=== PATIENT | female | born 2000 | race Caucasian/White ===

== ENCOUNTER 2025-01-04 12:56 | Inpatient (IN) | payer SELFPAY ==
[2025-01-04 13:29] VITALS: BP 142/86; PULSE 117; RESP 21; TEMP 36.9; O2SAT 98; BMI 23.3
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
[2025-01-04 14:22] LABS: HCG Qualitative Urine. Negative (Negative)
[2025-01-04 14:46] LABS: Amphetamines Screen Urine Negative (Negative); Barbiturates Screen Urine Negative (Negative); Benzodiazepines Screen Urine Negative (Negative); Cocaine Screen Urine Negative (Negative); Opiate Screen Urine Negative (Negative); PCP Screen Urine Negative (Negative); THC Screen Urine Negative (Negative)
--- NOTE | 2025-01-04 15:14 | PC.NURSE ---
CHIP MUCKER AND SECURITY TO ROOM TO READ 96 HOUR RIGHTS. PT CALM AND COOPERATIVE. PT STATES SHE HAS NO QUESTIONS. MOTHER AT BEDSIDE.
[2025-01-04 15:22] LABS: Basophils % 0.3 %; Eosinophils % 0.1 %; Hematocrit 44.6 % (36-47); Lymphocytes # 1.2 10^3/uL (0.8-4.8); Lymphocytes % 11.3 %; Mean Corpuscular HGB Conc 34.1 g/dL (30-55); Mean Corpuscular Hemoglobin 29.1 pg (27-33); Mean Corpuscular Volume 85.3 fl (85-98); Mean Platelet Volume 11.2 fL (7.4-10.4); Monocytes # 0.6 10^3/uL (0.2-0.9); Monocytes % 5.3 %; Neutrophils % 82.4 %; Nucleated Red Blood Cells % 0 %; Platelet Count 276 10^3/cmm (157-399); Red Blood Count 5.23 10^6/uL (3.85-5.65); Red Cell Distribution Width 12.2 % (12.1-15.1); White Blood Count 10.68 10^3/uL (3.29-11.43)
[2025-01-04 15:38] LABS: Alanine Aminotransferase 6 U/L (0-33); Albumin Level 4.9 g/dL (3.5-5.2); Alkaline Phosphatase 58 U/L (35-105); Anion Gap 22.4 (5-19); Aspartate Amino Transferase 9 U/L (0-32); Blood Urea Nitrogen 6 mg/dL (6-20); Calcium 9.5 mg/dL (8.5-10.5); Carbon Dioxide 18 mmol/L (22-29); Chloride 98 mmol/L (98-107); Creatinine Clr Calc Pharmacy 102.9052; Globulin 2.9 g/dL (1.3-4.6); Glomerular Filtration Rate 88.9 mL/min (90-130); Glucose 148 mg/dL (65-115); Osmolality Calculated 280 mOsm/kg (285-295); Potassium 3.4 mmol/L (3.5-5.1); Salicylate 0.5 mg/dL (3-10); Sodium 135 mmol/L (136-145); Total Bilirubin 1.6 mg/dL (0.15-1.2); Total Protein 7.8 g/dL (6.6-8.7)
[2025-01-04 15:40] LABS: Acetaminophen < 5.0 ug/mL (10-30); Alcohol Level < 10 mg/dL (0-10)
[2025-01-04 15:53] LABS: Thyroid Stimulating Hormone 1.07 uIU/mL (0.27-4.20)
[2025-01-04] MEDS: OLANZapine 5 mg ODT 2.5 MG PO (16:00)
--- NOTE | 2025-01-04 16:00 | PC.NURSE ---
PATIENT EXPRESSED TO ME THAT SHE FELT SHE HAS SCHIZOPHRENIA AND BPD BUT IS UNSURE. I EDUCATED PATIENT ON RESOURCES FOR [facility] AND INFORMED PROVIDER RUBIO WARD OF PATIENTS THOUGHTS.
[2025-01-04 17:22] VITALS: BP 105/68; PULSE 130; RESP 18; TEMP 37.1; O2SAT 96
[2025-01-04 17:30] VITALS: BP 105/68; PULSE 130; O2SAT 96
--- NOTE | 2025-01-04 17:40 | PC.NURSE ---
patient obtaining 2 silver little hoop earrings. pt stating she can't take them out. pt's mother obtained necklace. foam charger and Employment Case Manager notified/okayed.
[2025-01-04] MEDS: nicotine 2 mg Gum BUCCAL (17:44)
[2025-01-04 19:31] VITALS: BP 145/77; PULSE 82; RESP 18; TEMP 36.8; O2SAT 98
[2025-01-05] MEDS: nicotine 2 mg Gum BUCCAL ×3 (00:46→13:29)
[2025-01-05 06:00] VITALS: BP 99/64; PULSE 98; RESP 18; TEMP 36.9; O2SAT 98
--- NOTE | 2025-01-05 12:34 | PC.NURSE ---
Patient requesting medication for anxiety after screaming in her room from looking in the mirror. This nurse attempted to hand the patient some zyprexa, but patient hesitated, saying I need to make a call first. Patient made a phone call, then decided that she no longer needed any medication. This nurse wasted the zyprexa in the medication bottle.
[2025-01-05] MEDS: OLANZapine 5 mg ODT PO (12:51)
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
[2025-01-05 14:00] VITALS: BP 96/64; PULSE 78; RESP 16; O2SAT 97
--- NOTE | 2025-01-05 15:33 | PC.NURSE ---
During visiting hour, patient's mother was found by ROLL SKINNER, laying in bed with Susan. Patient says that she was tired so she wanted to lie down. Her mother layed down over the blanket next to her. Patient's mother was escorted out of the room and into the lobby to leave. No issues during this exchange. At the beginning of the visiting hour, this nurse had informed patient that she is to visit either in the dayroom or on the bench.
[2025-01-05] MEDS: hyDROXYzine 25 mg Capsule 50 MG PO (17:32)
[2025-01-05 20:18] VITALS: BP 113/78; PULSE 72; RESP 18; O2SAT 97
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
[2025-01-06] MEDS: trazodone 50 mg Tablet PO ×2 (02:18→21:00)
[2025-01-06] MEDS: hyDROXYzine 25 mg Capsule 50 MG PO ×3 (02:18→21:00)
[2025-01-06] MEDS: OLANZapine 5 mg ODT PO ×3 (05:09→14:40)
[2025-01-06] MEDS: nicotine 2 mg Gum BUCCAL ×3 (05:09→14:43)
[2025-01-06 06:00] VITALS: BP 105/73; PULSE 103; RESP 18; TEMP 37.1; O2SAT 97; BMI 23.3
[2025-01-06] MEDS: haloperidol 5 mg Tablet PO ×2 (06:05→15:48)
[2025-01-06] MEDS: ARIPiprazole 10 mg Tablet 5 MG PO (11:10)
--- NOTE | 2025-01-06 13:23 | P.NPUPN_ITS ---
Subjective NPU 2 Subjective: 24-year-old female admitted with psychos is including delusions with no prior history of inpatient psychiatric hospitalizations. Patient continued to appear somewhat paranoid on the unit. She had made an attempt to leave the unit yesterday. She had stated that she was feeling anxious this morning. She had been isolative on the milieu and required some prompting for completion of activities of daily living. She had reported that she had gone several days without sleep but stated that she had felt like she had slept more last night than she had in several days. She had received as needed Zyprexa last night. She had continued to appear suspicious of others and stated that she was here as part of a larger plan that she did not wish to discuss with the magnetic tape typewriter operator of this note. Mental Status Exam 2 MSE Comments: Casually dressed thin white female with poor hygiene and normal gait with no evidence of any abnormal involuntary motor movements, tics, or tremors appreciated. There was continued psychomotor agitation. She was guarded on interview. Her speech was initially productive with normal rate, rhythm, and prosody. Her mood was described as anxious. Her affect was odd and subdued. Her thought process linear and logical. Her thought content showed no evidence of homicidal or suicidal ideation. There was an element of delusional thinking. She at times appeared to be responding to internal stimuli although she denied any auditory or visual hallucinations. Her attention span was poor. She was alert and oriented person, place and time. Recent and remote memory were impaired. . Impulse control appeared poor. Insight is impaired. Judgment is poor. Vitals/I&O/Wt Last Vital Signs Temp 98.7 F 01/06/25 06:00 Pulse 103 H 01/06/25 06:00 Resp 18 01/06/25 06:00 BP 105/73 01/06/25 06:00 Pulse Ox 97 01/06/25 06:00 O2 Del Method Room Air 01/06/25 06:00 Weight last 48 hrs Weight 63.503 kg Weight 63.503 kg Data NPU 01/04/25 15:12 01/04/25 15:12 A&P Assessment and plan (1) Psychosis: Qualifiers: Psychosis type: unspecified psychosis type Qualified Code(s): F29 - Unspecified psychosis not due to a substance or known physiological condition (2) Schizophreniform disorder: Plan 24-year-old female admitted involuntarily with increased erratic behavior and continued evidence of psychotic symptoms. She appears at this time unwilling to consider psychotropic medications. #1.? Engage patient in individual milieu and group therapy. #2?? Recommend sober living treatment at the highest level of care to which the patient is willing to commit #3??? Evaluate patient while under the confines of a 96 hour involuntary hold here. Patient agreeable to trial of abilify 5mg daily beginning today. #4?? TO-15 minute checks? #5?? Will attempt to gather collateral information PDMP PDMP Reviewed: Not Reviewed Involuntary Hold Information 2 Hold Status: Legal Status: 96 Hour Hold Date/Time Hold Expires: 01/10/25 1445 Attestations NPU 2 Medical Necessity Statement*: Inpatient hospitalization is medically necessary and deemed to ?be ?the clinically appropriate intervention ?at this time.? We will monitor/initiate medications and make changes as indicated.? The patient?s likely length of stay 4-6 days. 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
[2025-01-06 14:00] VITALS: BP 121/76; PULSE 105; RESP 18; TEMP 36.6; O2SAT 98
--- NOTE | 2025-01-06 15:52 | PC.NURSE ---
Patient reports anxiety. Patient showed me that her nails and that she has been biting them from anxiety. Patient reports that her anxiety is from confusion about her situation at the hospital. This nurse talked with patient about the benefits of being on the unit and that good can come from this experience. Patient said, I can see that. Despite efforts to redirect patient, patient requesting medication for anxiety. Administered haldol 5mg PO.
--- NOTE | 2025-01-06 16:35 | PC.NURSE ---
Spoke with Mother Susan came to nurses station asking about a phone number for a Belen Crowe. After looking in patient chart we informed her that we didn't have that number listed, asked if she would like for us to call her mother and see if she could assist us. She stated that would be good. I spoke with Marsha, pt mother and she let me know that Belen was at patients work and that she was taking care of that for her. Letting her work know that she was not going to be in for a little bit. Mother did not give me the number, but just asked that we reassure her she is taking care of her missing work and that would all be okay. I notified patient of this.
[2025-01-06] MEDS: docusate sodium 100 mg Capsule PO (18:25)
[2025-01-06] MEDS: ondansetron 4 MG Tablet PO (18:26)
--- NOTE | 2025-01-06 18:27 | PC.NURSE ---
Constipation and Nausea Patient came to nurses station c/o not having had a bm for a few days. States that she is also a bit nauseated. We gave her a docusate and zofran to see if that would help.
[2025-01-06 19:57] VITALS: BP 113/58; PULSE 94; RESP 18; TEMP 36.7; O2SAT 98
[2025-01-07 06:00] VITALS: BP 128/73; PULSE 131; RESP 18; TEMP 36.6; O2SAT 97
[2025-01-07] MEDS: ARIPiprazole 10 mg Tablet 5 MG PO (08:02)
[2025-01-07] MEDS: nicotine 2 mg Gum BUCCAL ×3 (09:58→21:57)
[2025-01-07] MEDS: docusate sodium 100 mg Capsule PO (12:47)
[2025-01-07 14:00] VITALS: BP 118/76; PULSE 96; RESP 16; O2SAT 96
--- NOTE | 2025-01-07 15:23 | P.NPUPN_ITS ---
Subjective NPU 2 Subjective: 24-year-old white female negative for dr baez and alcohol admitted with psychosis and bizarre thinking. She continued to appear very guarded on interview. She continued to struggle with completion of activities of daily living. Patient had stated that she was feeling fine but was refusing to answer any specific questions regarding why she had been brought into the hospital and instead reflexively attempted to turn those questions back on the data analyst report writer of the note. She reported adequate sleep and stated that she was doing fine. She had continued to appear confused about her whereabouts and again stated that she felt that she was in [facility]. Mental Status Exam 2 MSE Comments: Casually dressed thin white female with poor hygiene and normal gait with no evidence of any abnormal involuntary motor movements, tics, or tremors appreciated. There was mild psychomotor retardation. She was extemely guarded on interview. Her speech was initially productive with normal rate, rhythm, and prosody. Her mood was described as anxious. Her affect was odd and subdued. Her thought process linear and logical. Her thought content showed no evidence of homicidal or suicidal ideation. There was evidence of delusional thinking. She at times appeared to be responding to internal stimuli although she denied any auditory or visual hallucinations. Her attention span was poor. She was alert and oriented person, and time. Recent and remote memory were impaired. . Impulse control appeared poor. Insight is impaired. Judgment is poor. Vitals/I&O/Wt Last Vital Signs Temp 98 F 01/07/25 06:00 Pulse 96 01/07/25 14:00 Resp 16 01/07/25 14:00 BP 118/76 01/07/25 14:00 Pulse Ox 96 01/07/25 14:00 O2 Del Method Room Air 01/07/25 14:00 Weight last 48 hrs Weight 63.503 kg Data NPU 01/04/25 15:12 01/04/25 15:12 A&P Assessment and plan (1) Psychosis: Qualifiers: Psychosis type: unspecified psychosis type Qualified Code(s): F29 - Unspecified psychosis not due to a substance or known physiological condition (2) Schizophreniform disorder: Plan 24-year-old female admitted involuntarily with increased erratic behavior and continued evidence of psychotic symptoms. She appears at this time unwilling to consider psychotropic medications. #1.? Engage patient in individual milieu and group therapy. #2?? Recommend sober living treatment at the highest level of care to which the patient is willing to commit #3??? Evaluate patient while under the confines of a 96 hour involuntary hold here. Increase abilify to 10mg daily. #4?? TO-15 minute checks? #5?? Will attempt to gather collateral information PDMP PDMP Reviewed: Not Reviewed Involuntary Hold Information 2 Hold Status: Legal Status: 96 Hour Hold Date/Time Hold Expires: 01/10/25 1445 Attestations NPU 2 Medical Necessity Statement*: Inpatient hospitalization is medically necessary and deemed to ?be ?the clinically appropriate intervention ?at this time.? We will monitor/initiate medications and make changes as indicated.? The patient?s likely length of stay 4-6 days. 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
[2025-01-07] MEDS: hyDROXYzine 25 mg Capsule 50 MG PO ×2 (16:17→20:34)
[2025-01-07] MEDS: trazodone 50 mg Tablet PO (20:33)
[2025-01-07 20:45] VITALS: BP 128/60; PULSE 120; RESP 16; TEMP 36.4; O2SAT 95
[2025-01-07] MEDS: ibuprofen 600 mg Tablet PO (21:56)
[2025-01-07] MEDS: OLANZapine 5 mg ODT PO (22:50)
[2025-01-08] MEDS: trazodone 50 mg Tablet PO ×2 (00:09→20:59)
[2025-01-08] MEDS: acetaminophen 325 mg Tablet 650 MG PO (02:52)
[2025-01-08] MEDS: nicotine 2 mg Gum BUCCAL ×6 (05:25→21:32)
[2025-01-08 06:00] VITALS: BP 116/76; PULSE 119; RESP 16; TEMP 37.1; O2SAT 98
[2025-01-08] MEDS: hyDROXYzine 25 mg Capsule 50 MG PO ×2 (07:52→17:00)
[2025-01-08] MEDS: ARIPiprazole 10 mg Tablet PO (07:52)
[2025-01-08] MEDS: ondansetron 4 MG Tablet PO (08:05)
[2025-01-08] MEDS: docusate sodium 100 mg Capsule PO (08:52)
[2025-01-08] MEDS: haloperidol 5 mg Tablet PO ×2 (08:52→18:26)
--- NOTE | 2025-01-08 13:54 | P.NPUPN_ITS ---
Subjective NPU 2 Subjective: 24-year-old white female negative for dr baez and alcohol admitted with psychosis and bizarre thinking. The patient had admitted that she had been hearing voices for some time now. She had reported that she had been engaging in what she described as unusual behavior for her including increased promiscuity. She reported that she had been feeling more focused. She had continued to struggle with isolating in her room. She had not made any attempts to flee the hospital. There were no acts of aggression recently. She did not require any as needed medications. The patient had described her mood as fine but at the same time remained somewhat reserved and unwilling to discuss issues leading to her hospitalization. Mental Status Exam 2 MSE Comments: Casually dressed thin white female with poor hygiene and normal gait with no evidence of any abnormal involuntary motor movements, tics, or tremors appreciated. There was mild psychomotor retardation. She was less guarded on interview. Her speech was productive with normal rate, rhythm, and prosody. Her mood was described as allright. Her affect was odd and subdued. Her thought process linear but superficial. Her thought content showed no evidence of homicidal or suicidal ideation. There was evidence of delusional thinking. She at times appeared to be responding to internal stimuli although she minimized auditory hallucinations. Her attention span was poor. She was alert and oriented to person, place and time. Recent and remote memory were impaired. Impulse control appeared poor. Insight is impaired. Judgment is poor. Vitals/I&O/Wt Last Vital Signs Temp 98.7 F 01/08/25 06:00 Pulse 119 H 01/08/25 06:00 Resp 16 01/08/25 06:00 BP 116/76 01/08/25 06:00 Pulse Ox 98 01/08/25 06:00 O2 Del Method Room Air 01/08/25 06:00 Data NPU 01/04/25 15:12 01/04/25 15:12 A&P Assessment and plan (1) Psychosis: Qualifiers: Psychosis type: unspecified psychosis type Qualified Code(s): F29 - Unspecified psychosis not due to a substance or known physiological condition (2) Schizophreniform disorder: Plan 24-year-old female admitted involuntarily with increased erratic behavior and continued evidence of psychotic symptoms. She appears at this time unwilling to consider psychotropic medications. #1.? Engage patient in individual milieu and group therapy. #2?? Recommend sober living treatment at the highest level of care to which the patient is willing to commit #3??? Evaluate patient while under the confines of a 96 hour involuntary hold here. Increase abilify to 15mg daily. #4?? TO-15 minute checks? #5?? Will attempt to gather collateral information PDMP PDMP Reviewed: Not Reviewed Involuntary Hold Information 2 Hold Status: Legal Status: 96 Hour Hold Date/Time Hold Expires: 01/10/2025 @ 1445 Attestations NPU 2 Medical Necessity Statement*: Inpatient hospitalization is medically necessary and deemed to ?be ?the clinically appropriate intervention ?at this time.? We will monitor/initiate medications and make changes as indicated.? The patient?s likely length of stay 4-6 days. 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
[2025-01-08 14:00] VITALS: BP 102/63; PULSE 112; RESP 16; TEMP 36.7; O2SAT 97
--- NOTE | 2025-01-08 20:28 | PC.NURSE ---
Pt refused to have her vitals taken by this nurse. Pt stated that she was good and didn't need them taken. Will try later this shift to take them. notified charge nurse of the refusal.
[2025-01-08] MEDS: OLANZapine 5 mg ODT PO (20:59)
[2025-01-08 22:00] VITALS: RESP 17
[2025-01-09] MEDS: hyDROXYzine 25 mg Capsule 50 MG PO (03:53)
[2025-01-09] MEDS: ibuprofen 600 mg Tablet PO (03:56)
[2025-01-09 06:00] VITALS: BP 111/69; PULSE 91; RESP 17; O2SAT 96
[2025-01-09] MEDS: ARIPiprazole 10 mg Tablet 15 MG PO (08:19)
[2025-01-09 14:00] VITALS: BP 119/75; PULSE 115; RESP 17; TEMP 36.7; O2SAT 96
--- NOTE | 2025-01-09 14:45 | P.NPUPN_ITS ---
Subjective NPU 2 Subjective: 24-year-old white female negative for dr baez and alcohol admitted with psychosis and bizarre thinking. The patient had revealed that she was concerned that people were trying to kill her. The patient had stated if they want [place] it is fine with me . She had been suspicious of others at work that they were somehow trying to get the patient in trouble. The patient had reported that she had been distracted by her thoughts for several weeks. She continued to struggle with completion of routine activities of daily living including showering and brushing her teeth. Mental Status Exam 2 MSE Comments: Casually dressed thin white female with poor hygiene and normal gait with no evidence of any abnormal involuntary motor movements, tics, or tremors appreciated. There was mild psychomotor retardation. She remained guarded on interview. Her speech was less productive today normal in rhythm, and monotone in quality. Her mood was described as fine. Her affect was odd and subdued. Her thought process linear but superficial. Her thought content showed no evidence of homicidal or suicidal ideation. There was evidence of delusional thinking. She at times appeared to be responding to internal stimuli although she minimized auditory hallucinations. Her attention span was poor. She was alert and oriented to person, place and time. Recent and remote memory were impaired. Impulse control appeared poor. Insight is impaired. Judgment is poor. Vitals/I&O/Wt Last Vital Signs Temp 98.1 F 01/08/25 14:00 Pulse 91 01/09/25 06:00 Resp 17 01/09/25 06:00 BP 111/69 01/09/25 06:00 Pulse Ox 96 01/09/25 06:00 O2 Del Method Room Air 01/09/25 06:00 Data NPU 01/04/25 15:12 01/04/25 15:12 A&P Assessment and plan (1) Psychosis: Qualifiers: Psychosis type: unspecified psychosis type Qualified Code(s): F29 - Unspecified psychosis not due to a substance or known physiological condition (2) Schizophreniform disorder: Plan 24-year-old female admitted involuntarily with increased erratic behavior and continued evidence of psychotic symptoms. She appears at this time unwilling to consider psychotropic medications. #1.? Engage patient in individual milieu and group therapy. #2?? Recommend sober living treatment at the highest level of care to which the patient is willing to commit #3??? Evaluate patient while under the confines of a 96 hour involuntary hold here. Will likely file for 21 day hold. Continue abilify to 15mg daily. #4?? TO-15 minute checks? #5?? Will attempt to gather collateral information PDMP PDMP Reviewed: Not Reviewed Involuntary Hold Information 2 Hold Status: Legal Status: 96 Hour Hold Date/Time Hold Expires: 01/10/2025 @ 1445 Attestations NPU 2 Medical Necessity Statement*: Inpatient hospitalization is medically necessary and deemed to ?be ?the clinically appropriate intervention ?at this time.? We will monitor/initiate medications and make changes as indicated.? The patient?s likely length of stay 5-7 days. 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
[2025-01-09] MEDS: nicotine 2 mg Gum BUCCAL (15:08)
[2025-01-09 20:37] VITALS: BP 106/70; PULSE 106; RESP 18; O2SAT 97
[2025-01-10] MEDS: nicotine 2 mg Gum BUCCAL ×5 (02:30→23:27)
[2025-01-10] MEDS: hyDROXYzine 25 mg Capsule 50 MG PO ×2 (02:34→21:14)
[2025-01-10] MEDS: docusate sodium 100 mg Capsule PO ×2 (04:04→22:21)
[2025-01-10] MEDS: OLANZapine 5 mg ODT PO (04:04)
[2025-01-10] MEDS: acetaminophen 325 mg Tablet 650 MG PO (04:10)
[2025-01-10 06:00] VITALS: BP 118/82; PULSE 97; RESP 18; O2SAT 98
[2025-01-10] MEDS: ARIPiprazole 10 mg Tablet 15 MG PO (07:58)
--- NOTE | 2025-01-10 13:01 | P.NPUPN_ITS ---
Subjective NPU 2 Subjective: 24-year-old white female negative for dr baez and alcohol admitted with psychosis and bizarre thinking. The patient had stated that she had felt like her best friend and her mother were not themselves. She reported that someone was using a eye and reported that people in [place] were somehow plotting against her. She had reported that she was hearing things that other people were not hearing. She had reported that she had been distracted by her thoughts and voices for the past 6 months at least. She had appeared more interested in self-care over the last few days including showering without prompting. Mental Status Exam 2 MSE Comments: Casually dressed thin white female with improved hygiene and normal gait with no evidence of any abnormal involuntary motor movements, tics, or tremors appreciated. There was mild psychomotor retardation. She remained guarded on interview. Her speech was more productive today normal in rhythm, and monotone in quality. Her mood was described as fine. Her affect was odd and subdued. Her thought process linear but superficial. Her thought content showed no evidence of homicidal or suicidal ideation. There was evidence of delusional thinking. 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 She at times appeared to be responding to internal stimuli although she minimized auditory hallucinations. Her attention span was poor. She was alert and oriented to person, place and time. Recent and remote memory were impaired. Impulse control appeared poor. Insight is impaired. Judgment is poor. Vitals/I&O/Wt Last Vital Signs Temp 98.0 F 01/09/25 14:00 Pulse 97 01/10/25 06:00 Resp 18 01/10/25 06:00 BP 118/82 01/10/25 06:00 Pulse Ox 98 01/10/25 06:00 O2 Del Method Room Air 01/09/25 06:00 Data NPU 01/04/25 15:12 01/04/25 15:12 A&P Assessment and plan (1) Schizophreniform disorder: (2) Psychosis: Qualifiers: Psychosis type: unspecified psychosis type Qualified Code(s): F29 - Unspecified psychosis not due to a substance or known physiological condition Plan 24-year-old female admitted involuntarily with increased erratic behavior and continued evidence of psychotic symptoms. She appears at this time unwilling to consider psychotropic medications. #1.? Engage patient in individual milieu and group therapy. #2?? Recommend sober living treatment at the highest level of care to which the patient is willing to commit #3???21 day hold filed today. Continue abilify to 15mg daily. #4?? TO-15 minute checks? #5?? Will attempt to gather collateral information PDMP PDMP Reviewed: Not Reviewed Involuntary Hold Information 2 Hold Status: Legal Status: 96 Hour Hold Date/Time Hold Expires: 01/10/2025 @ 1445 Attestations NPU 2 Medical Necessity Statement*: Inpatient hospitalization is medically necessary and deemed to ?be ?the clinically appropriate intervention ?at this time.? We will monitor/initiate medications and make changes as indicated.? The patient?s likely length of stay 5-7 days. Coding Level of Care Code Acute Code for Chg Fwd Diagnoses Schizophreniform disorder F20.81 Psychosis F29 Psychosis type: unspecified psychosis type
[2025-01-10 14:00] VITALS: BP 115/77; PULSE 110; RESP 16; TEMP 37.1; O2SAT 98
[2025-01-10 19:39] VITALS: BP 138/84; PULSE 130; RESP 17; TEMP 37; O2SAT 99
[2025-01-10] MEDS: trazodone 50 mg Tablet PO (21:14)
[2025-01-11 06:00] VITALS: BP 118/83; PULSE 99; RESP 16; TEMP 36.8; O2SAT 98
[2025-01-11] MEDS: ARIPiprazole 10 mg Tablet 15 MG PO (08:16)
--- NOTE | 2025-01-11 08:45 | P.NPUPN_ITS ---
Subjective NPU 2 Subjective: Patient presented today reporting that things are going okay. She reports that the medication might be helping some but she continues to be quite paranoid and feeling like people are out to get her. She reports a history of addiction suggesting that she has possibly used methamphetamine recently. She reported that she has had this kind of reaction to drugs before. She agreed that this headline writer could reach out to her mother and get some collateral information to try to figure out what this represents. We discussed continuing to titrate the Abilify at maximum dosage but the likelihood that we will have to transition to Invega or something else given her limited response thus far. Mental Status Exam 2 MSE Comments: Casually dressed thin white female with improved hygiene and normal gait with no evidence of any abnormal involuntary motor movements, tics, or tremors appreciated. There was mild psychomotor retardation. She remained guarded on interview. Her speech was more productive today normal in rhythm, and monotone in quality. Her mood was described as fine. Her affect was odd and subdued. Her thought process linear but superficial. Her thought content showed no evidence of homicidal or suicidal ideation. There was evidence of delusional thinking. 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 She at times appeared to be responding to internal stimuli although she minimized auditory hallucinations. Her attention span was poor. She was alert and oriented to person, place and time. Recent and remote memory were impaired. Impulse control appeared poor. Insight is impaired. Judgment is poor. Vitals/I&O/Wt Last Vital Signs Temp 98.3 F 01/11/25 06:00 Pulse 99 01/11/25 06:00 Resp 16 01/11/25 06:00 BP 118/83 01/11/25 06:00 Pulse Ox 98 01/11/25 06:00 O2 Del Method Room Air 01/11/25 06:00 Data NPU 01/04/25 15:12 01/04/25 15:12 A&P Assessment and plan (1) Schizophreniform disorder: (2) Psychosis: Qualifiers: Psychosis type: unspecified psychosis type Qualified Code(s): F29 - Unspecified psychosis not due to a substance or known physiological condition Plan 24-year-old female admitted involuntarily with increased erratic behavior and continued evidence of psychotic symptoms. She appears at this time unwilling to consider psychotropic medications. #1.? Engage patient in individual milieu and group therapy. #2?? Recommend sober living treatment at the highest level of care to which the patient is willing to commit #3???21 day hold filed today. Continue abilify to 15mg daily. Increased to 20 mg p.o. daily. #4?? TO-15 minute checks? #5?? Will attempt to gather collateral information #6 21-day hold hearing today. PDMP PDMP Reviewed: Not Reviewed Involuntary Hold Information 2 Hold Status: Legal Status: 96 Hour Hold Date/Time Hold Expires: 01/10/2025 @ 1445 Attestations NPU 2 Medical Necessity Statement*: Inpatient hospitalization is medically necessary and the clinically appropriate intervention ?at this time.? We will monitor/initiate medications and make changes as indicated.? The patient?s likely length of stay 7-10 days. Coding Level of Care Code Acute Code for g Fwd Diagnoses Schizophreniform disorder F20.81 Psychosis F29 Psychosis type: unspecified psychosis type
[2025-01-11] MEDS: hyDROXYzine 25 mg Capsule 50 MG PO ×2 (11:09→20:07)
[2025-01-11] MEDS: nicotine 2 mg Gum BUCCAL ×4 (11:09→20:51)
[2025-01-11] MEDS: acetaminophen 325 mg Tablet 650 MG PO (13:19)
[2025-01-11 14:00] VITALS: BP 111/78; PULSE 130; TEMP 36.7; O2SAT 97
[2025-01-11] MEDS: haloperidol 5 mg Tablet PO (15:09)
--- NOTE | 2025-01-11 17:29 | PC.NURSE ---
Verbal order from Dr. Harvey to increase patient's abilify from 15mg PO daily, to 20mg PO daily.
[2025-01-11] MEDS: ARIPiprazole 10 mg Tablet 5 MG PO (17:35)
[2025-01-11] MEDS: OLANZapine 5 mg ODT PO (17:48)
[2025-01-11] MEDS: ibuprofen 600 mg Tablet PO (18:21)
--- NOTE | 2025-01-11 18:26 | PC.NURSE ---
Banging head At about 1803, this nurse and AMY Black heard a thumping sound. On inspection, we observe this patient banging her head against the window in her room, repeatedly. This nurse and Sofia immediately went to intervene. Patient yelled at this policy writer typist to stay away from me, get back! Patient's hands were tremulous. Patient appeared frightened. This nurse cautiously backed away. Kyra and Joyce also notified, and arrived to help verbally de-esculate. Patient began banging her head against the window again before she finally sat down in the corner of her room. Security notified, and present on the unit quickly. Patient making statements about is Melanie Rowley a real person? Is this a wartime? Patient is currently reading a book about Melanie Rowley. This nurse notified Dr. Harvey who gave verbal for geodon 20mg IM and geodon 40mg PO, if patient was still acting up after twenty minutes, to give patient some geodon. After 20 minutes, patient is laying in bed; gedon not administered at this time. Patient says that she has head pain, 10/10. Dr. Harvey gave verbal order for CT of head without contrast
--- NOTE | 2025-01-11 18:42 | CTR_ITS ---
PROCEDURE INFORMATION: Exam: CT Head Without Contrast Exam date and time: 01/11/2025 9:48 PM Age: 24 years old Clinical indication: Injury or trauma; Blunt trauma (contusions or hematomas); Multiple self inflicted blows to a window pane. C/O frontal pain. ; Additional info: Banging head against window multiple times, pain 10/ TECHNIQUE: Imaging protocol: Computed tomography of the head without contrast. Radiation optimization: All CT scans at this facility use at least one of these dose optimization techniques: automated exposure control; mA and/or kV adjustment per patient size (includes targeted exams where dose is matched to clinical indication); or iterative reconstruction. COMPARISON: No relevant prior studies available. RADIATION DOSE METRICS: Total DLP (mGy-cm): 1004.38 FINDINGS: Brain: No hemorrhage. No mass effect or midline shift. No significant white matter disease. Cerebral ventricles: No ventriculomegaly. Paranasal sinuses: Visualized sinuses are unremarkable. No fluid levels. Mastoid air cells: Visualized mastoid air cells are well aerated. Bones: Unremarkable. No acute fracture. Soft tissues: Unremarkable. CT/CT head wo con* [id number] IMPRESSION: No acute intracranial findings.
[2025-01-11] MEDS: trazodone 50 mg Tablet PO (20:07)
[2025-01-11 20:18] VITALS: BP 112/73; PULSE 85; RESP 17; TEMP 36.3; O2SAT 98
[2025-01-11] MEDS: docusate sodium 100 mg Capsule PO (22:09)
[2025-01-11] MEDS: ziprasidone hcl 40 mg Capsule PO (22:10)
[2025-01-12] MEDS: haloperidol 5 mg Tablet PO (03:52)
[2025-01-12] MEDS: acetaminophen 325 mg Tablet 650 MG PO (03:52)
[2025-01-12] MEDS: hyDROXYzine 25 mg Capsule 50 MG PO ×2 (03:52→19:20)
[2025-01-12 06:00] VITALS: BP 103/67; PULSE 85; RESP 17; TEMP 36.7; O2SAT 98
[2025-01-12] MEDS: ARIPiprazole 10 mg Tablet 20 MG PO (08:30)
[2025-01-12] MEDS: ondansetron 4 MG Tablet PO (09:05)
[2025-01-12] MEDS: nicotine 2 mg Gum BUCCAL ×2 (11:11→16:14)
[2025-01-12] MEDS: OLANZapine 5 mg ODT PO (11:11)
--- NOTE | 2025-01-12 11:12 | PC.NURSE ---
Patient in day room punching wall. This nurse went down to see what was wrong. Patient stated she was dealing with anger. Gave patient medications and nicotine gum.
[2025-01-12 14:00] VITALS: BP 103/63; PULSE 102; RESP 16; TEMP 36.8; O2SAT 97
--- NOTE | 2025-01-12 17:45 | PC.NURSE ---
Patient came to nurses station and ask if having sex was allowed here. This nurse told patient no, we are in the hospital and it is forbidden.
[2025-01-12] MEDS: trazodone 50 mg Tablet PO (19:19)
--- NOTE | 2025-01-12 19:37 | W.PM.NPUPNS ---
Subjective NPU Subjective: Patient presented today reporting that she is struggling. She reports that she feels like she is going to . We discussed her continued paranoia and a plan to increase the Abilify to 30 mg and see how she is doing over the next couple days. We also discussed the likelihood of adding Invega and a cross titration if there is no marked improvement over the next few days. We are continuing to discuss hoping to get some clarity from her family about significant drug use. To understand what sober living will offer to her situation. At this point she continues to deny side effects to the medication. Mental Status Exam MSE Comments: Casually dressed thin white female with improved hygiene and normal gait with no evidence of any abnormal involuntary motor movements, tics, or tremors appreciated. There was mild psychomotor retardation. She remained guarded on interview. Her speech was more productive today normal in rhythm, and monotone in quality. Her mood was described as fine. Her affect was odd and subdued. Her thought process linear but superficial. Her thought content showed no evidence of homicidal or suicidal ideation. There was evidence of delusional thinking. 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 She at times appeared to be responding to internal stimuli although she minimized auditory hallucinations. Her attention span was poor. She was alert and oriented to person, place and time. Recent and remote memory were impaired. Impulse control appeared poor. Insight is impaired. Judgment is poor. Vitals/I&O/Wt Last Vital Signs Temp 98.9 F 01/12/25 20:10 Pulse 95 01/12/25 20:10 Resp 17 01/12/25 20:10 BP 113/71 01/12/25 20:10 Pulse Ox 98 01/12/25 20:10 O2 Del Method Room Air 01/12/25 20:10 Data NPU 01/04/25 15:12 01/04/25 15:12 A&P Assessment and plan (1) Schizophreniform disorder: (2) Psychosis: Qualifiers: Psychosis type: unspecified psychosis type Qualified Code(s): F29 - Unspecified psychosis not due to a substance or known physiological condition Plan 24-year-old female admitted involuntarily with increased erratic behavior and continued evidence of psychotic symptoms. She appears at this time unwilling to consider psychotropic medications. #1.? Engage patient in individual milieu and group therapy. #2?? Recommend sober living treatment at the highest level of care to which the patient is willing to commit #3???21 day hold filed today. Continue abilify to 15mg daily. Increased to 20 mg p.o. daily. Increase to 30 mg p.o. daily. Will likely need to switch to Invega. #4?? TO-15 minute checks? #5?? Will attempt to gather collateral information #6 21-day hold hearing today. PDMP PDMP Reviewed: Not Reviewed Involuntary Hold Information Hold Status: Legal Status: 21 Day Hold Date/Time Hold Expires: 02/01/25 Attestations NPU Medical Necessity Statement*: Inpatient hospitalization is medically necessary and the clinically appropriate intervention ?at this time.? We will monitor/initiate medications and make changes as indicated.? The patient?s likely length of stay 7-10 days. Coding Level of Care Code Acute Code for [facility] Fwd Diagnoses Schizophreniform disorder F20.81 Psychosis F29 Psychosis type: unspecified psychosis type
[2025-01-12 20:10] VITALS: BP 113/71; PULSE 95; RESP 17; TEMP 37.2; O2SAT 98
[2025-01-13 06:00] VITALS: BP 100/59; PULSE 106; RESP 16; TEMP 37; O2SAT 97
[2025-01-13] MEDS: ARIPiprazole 10 mg Tablet 20 MG PO (09:22)
[2025-01-13 14:00] VITALS: BP 99/62; PULSE 92; RESP 16; O2SAT 95
--- NOTE | 2025-01-13 16:42 | P.NPUPN_ITS ---
Subjective NPU 2 Subjective: Patient presented today reporting that she was okay but was more resistant to interview today reporting that she did not really want to talk. She answered some basic and minimal questions and eventually ended the interview short. But she continued to endorse symptoms and we discussed the risks, benefits and alternatives of increasing the Abilify to 30 mg p.o. daily daily and she understood and agreed to proceed as is documented in this note. We discussed the likelihood of a need for us to move onto Invega likely by Tuesday if there are no clear signs of improvement. Mental Status Exam 2 MSE Comments: This is a well-nourished well-developed white female in hospital scrubs with with improved hygiene and grooming but limited eye contact. No abnormal movements except for psychomotor retardation. Somewhat uncooperative with exam today in moderate distress. She remained guarded on interview. Speech was limited and decreased rate and volume. Mood described as I do not know, affect irritable, subdued and odd. Her thought process linear. Her thought content showed no evidence of homicidal or suicidal ideation. There were reports of paranoia and significant guardedness noted. 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 She at times appeared to be responding to internal stimuli although she minimized auditory hallucinations. Her attention span was poor. She was alert and oriented to person, place and time. Recent and remote memory were impaired. Impulse control appeared poor. Insight is impaired. Judgment is poor. Vitals/I&O/Wt Last Vital Signs Temp 98.6 F 01/13/25 06:00 Pulse 92 01/13/25 14:00 Resp 16 01/13/25 14:00 BP 99/62 01/13/25 14:00 Pulse Ox 95 01/13/25 14:00 O2 Del Method Room Air 01/13/25 06:00 Data NPU 01/04/25 15:12 01/04/25 15:12 A&P Assessment and plan (1) Schizophreniform disorder: (2) Psychosis: Qualifiers: Psychosis type: unspecified psychosis type Qualified Code(s): F29 - Unspecified psychosis not due to a substance or known physiological condition Plan 24-year-old female admitted involuntarily with increased erratic behavior and continued evidence of psychotic symptoms. She appears at this time unwilling to consider psychotropic medications. 1. Continue current medication. Continue abilify to 15mg daily. Increased to 20 mg p.o. daily. Increase to 30 mg p.o. daily. Will likely need to switch to Invega. 2. Recommend sober living treatment at the highest level of care to which the patient is willing to commit 3. Continue every 15 minute checks for safety.??? 4. Will attempt to gather collateral information. 5. Patient placed on 21-day hold on 01/11/2025. PDMP PDMP Reviewed: Not Reviewed Involuntary Hold Information 2 Hold Status: Legal Status: 21 Day Hold Date/Time Hold Expires: 02/01/25 Attestations NPU 2 Medical Necessity Statement*: Inpatient hospitalization is medically necessary and the clinically appropriate intervention ?at this time.? We will monitor/initiate medications and make changes as indicated.? The patient?s likely length of stay 7-10 days. Coding Level of Care Code Acute Code for [facility] Fwd Diagnoses Schizophreniform disorder F20.81 Psychosis F29 Psychosis type: unspecified psychosis type
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
[2025-01-13 19:56] VITALS: BP 111/78; PULSE 109; RESP 16; TEMP 36.4; O2SAT 97
[2025-01-13] MEDS: trazodone 50 mg Tablet PO ×2 (20:08→21:46)
[2025-01-13] MEDS: hyDROXYzine 25 mg Capsule 50 MG PO (20:08)
[2025-01-14 06:00] VITALS: BP 110/72; PULSE 90; RESP 16; TEMP 36.9; O2SAT 97
[2025-01-14 07:52] LABS: Glucose Point of Care 193 mg/dL (70-110)
[2025-01-14] MEDS: ARIPiprazole 30 mg Tablet PO (08:24)
[2025-01-14] MEDS: acetaminophen 325 mg Tablet 650 MG PO (08:25)
--- NOTE | 2025-01-14 08:42 | PC.NURSE ---
Morning assessment Patient denies suicidal ideation, homicidal ideation, and depression. Patient says she has minor anxiety that does not acquire medication. Patient is still delayed in responses. Patient reports generalized body pain 9. Administered tylenol.
[2025-01-14 14:00] VITALS: BP 89/58; PULSE 131; RESP 18; TEMP 36.4; O2SAT 100
[2025-01-14] MEDS: nicotine 2 mg Gum BUCCAL (17:25)
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
[2025-01-14 19:53] VITALS: BP 93/62; PULSE 104; RESP 16; TEMP 37.3; O2SAT 100
[2025-01-15 06:00] VITALS: BP 114/64; PULSE 86; RESP 16; TEMP 37.1; O2SAT 99
[2025-01-15] MEDS: ARIPiprazole 30 mg Tablet PO (08:39)
[2025-01-15] MEDS: loperamide 2 mg Capsule PO (08:44)
--- NOTE | 2025-01-15 10:31 | PC.NURSE ---
1:1 1:1 order placed at [address] Harvey
[2025-01-15] MEDS: haloperidol inj 5 mg/mL INJ 1 mL IM (12:54)
[2025-01-15] MEDS: LORazepam 2 mg/mL INJ 1 mL IM (12:54)
[2025-01-15] MEDS: diphenhydrAMINE 50 mg/mL SDV 1mL IM (12:54)
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
[2025-01-15 14:00] VITALS: BP 110/58; PULSE 125; RESP 18; TEMP 37; O2SAT 99
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
[2025-01-15] MEDS: nicotine 2 mg Gum BUCCAL (17:31)
[2025-01-15] MEDS: paliperidone ER 3 mg Tablet PO (18:11)
[2025-01-15 20:03] VITALS: BP 99/59; PULSE 109; RESP 16; TEMP 36.9; O2SAT 97
[2025-01-16 06:00] VITALS: BP 103/67; PULSE 102; RESP 16; TEMP 36.7; O2SAT 97
[2025-01-16] MEDS: paliperidone ER 3 mg Tablet PO (07:58)
[2025-01-16] MEDS: ARIPiprazole 30 mg Tablet PO (07:58)
[2025-01-16] MEDS: nicotine 2 mg Gum BUCCAL ×3 (09:59→21:59)
[2025-01-16] MEDS: loperamide 2 mg Capsule PO (13:39)
[2025-01-16] MEDS: OLANZapine 5 mg ODT PO ×2 (13:51→21:55)
[2025-01-16 13:54] VITALS: BP 101/64; PULSE 113; RESP 17; TEMP 36.4; O2SAT 98
--- NOTE | 2025-01-16 18:12 | P.NPUPN_ITS ---
Subjective NPU 2 Subjective: Patient presented today reporting that she is doing okay. She has been spending more time lying in her bed. We discussed the likelihood of increasing Invega to 6 mg in the morning and starting to address whether or not the Abilify has helped at all. No incidences today related to aggression. She continues to be on one-on-one with no negative reports. We discussed the risks, benefits and alternatives to the proposed changes and she understood and agreed to proceed as is documented in this note. Mental Status Exam 2 MSE Comments: This is a well-nourished well-developed white female in hospital scrubs with with improved hygiene and grooming but limited eye contact. No abnormal movements except for psychomotor retardation. More cooperative with exam today in mild distress. She remained guarded on interview. Speech was limited and decreased rate and volume. Mood described as I do not know, affect irritable, subdued and odd. Her thought process linear. Her thought content showed no evidence of homicidal or suicidal ideation. There were reports of paranoia and significant guardedness noted. 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 She at times appeared to be responding to internal stimuli although she minimized auditory hallucinations. Her attention span was poor. She was alert and oriented to person, place and time. Recent and remote memory were impaired. Impulse control appeared poor. Insight is impaired. Judgment is poor. Vitals/I&O/Wt Last Vital Signs Temp 98.9 F 01/16/25 19:53 Pulse 114 H 01/16/25 19:53 Resp 16 01/16/25 19:53 BP 105/65 01/16/25 19:53 Pulse Ox 96 01/16/25 19:53 O2 Del Method Room Air 01/16/25 19:53 Data NPU 01/04/25 15:12 01/04/25 15:12 A&P Assessment and plan (1) Schizophreniform disorder: (2) Psychosis: Qualifiers: Psychosis type: unspecified psychosis type Qualified Code(s): F29 - Unspecified psychosis not due to a substance or known physiological condition Plan 24-year-old female admitted involuntarily with increased erratic behavior and continued evidence of psychotic symptoms. She appears at this time unwilling to consider psychotropic medications. 1. Continue current medication. Continue abilify to 15mg daily. Increased to 20 mg p.o. daily. Increase to 30 mg p.o. daily. Will likely need to switch to Invega. Added Invega 3 mg p.o. daily we will start tapering Abilify shortly. Increase Invega to 6 mg tomorrow and we will begin likely tapering Abilify with some sign of response. 2. Recommend sober living treatment at the highest level of care to which the patient is willing to commit 3. Continue every 15 minute checks for safety.??? Changed to one-to-one after reviewing videotape of her being aggressive towards another patient. 4. Will attempt to gather collateral information. 5. Patient placed on 21-day hold on 01/11/2025. PDMP PDMP Reviewed: Not Reviewed Involuntary Hold Information 2 Hold Status: Legal Status: 21 Day Hold Date/Time Hold Expires: 02/01/25 Attestations NPU 2 Medical Necessity Statement*: Inpatient hospitalization is medically necessary and the clinically appropriate intervention ?at this time.? We will monitor/initiate medications and make changes as indicated.? The patient?s likely length of stay 7-10 days. Coding Level of Care Code Acute Code for g Fwd Diagnoses Schizophreniform disorder F20.81 Psychosis F29 Psychosis type: unspecified psychosis type
[2025-01-16 19:53] VITALS: BP 105/65; PULSE 114; RESP 16; TEMP 37.2; O2SAT 96
[2025-01-16] MEDS: hyDROXYzine 25 mg Capsule 50 MG PO (21:55)
[2025-01-16] MEDS: docusate sodium 100 mg Capsule PO (21:55)
[2025-01-17 06:00] VITALS: BP 93/56; PULSE 80; RESP 16; TEMP 36.6; O2SAT 98
[2025-01-17] MEDS: ARIPiprazole 30 mg Tablet PO (09:48)
[2025-01-17] MEDS: paliperidone ER 3 mg Tablet PO ×2 (09:48→12:54)
[2025-01-17] MEDS: magnesium hydroxide 30 mL UDC PO (10:13)
--- NOTE | 2025-01-17 11:36 | PC.NURSE ---
Addendum entered and electronically signed by Marsha Thomas RN 01/17/25 11:43: 3MG OF INVEGA ONE TIME ORDER PLACED TO EQUAL 6 MG. NEW ORDERS RECEIVED FROM DR. BENAVIDES TO DECREASE ABILIFY TO 25 MG DAILY, Original Note: NEW ORDERS RECEIVED FROM DR. BENAVIDES TO INCREASE INVEGA TO 6 MG. ORDERS PLACED. EDUCATION PROVIDED.
[2025-01-17 14:00] VITALS: BP 127/81; PULSE 119; RESP 22; TEMP 36.6; O2SAT 99
[2025-01-17] MEDS: nicotine 2 mg Gum BUCCAL ×2 (14:16→18:02)
[2025-01-17] MEDS: hyDROXYzine 25 mg Capsule 50 MG PO ×2 (14:31→22:01)
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
[2025-01-17] MEDS: haloperidol 5 mg Tablet PO (16:18)
--- NOTE | 2025-01-17 17:56 | P.NPUPN_ITS ---
Subjective NPU 2 Subjective: Patient presented today reporting that she is doing okay. She reports she is still having perceptual disturbances and is having some thoughts and feelings to hurt herself and hurt others. She reports that she does not normally feel like this at her baseline and is unsure whether this is coming from. We endorsed that we would continue the one-to-one and hope that the medication changes would continue to drive improvement. We had discussed the risks, benefits and alternatives of increasing her Invega to 6 mg p.o. daily and decreasing the Abilify to 25 mg daily and she understood and agreed to proceed as is documented in this note. She denied any specific side effects to the medications. Mental Status Exam 2 MSE Comments: This is a well-nourished well-developed white female in hospital scrubs with with improved hygiene and grooming but limited eye contact. No abnormal movements except for psychomotor retardation. More cooperative with exam today in mild distress. She remained guarded on interview. Speech was limited and decreased rate and volume. Mood described as I do not know, affect irritable, subdued and odd. Her thought process linear. Her thought content showed no evidence of homicidal or suicidal ideation. There were reports of paranoia and significant guardedness noted. 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 She at times appeared to be responding to internal stimuli and was reporting auditory hallucinations still being present. Her attention span was poor. She was alert and oriented to person, place and time. Recent and remote memory were impaired. Impulse control appeared poor. Insight is impaired. Judgment is poor. Vitals/I&O/Wt Last Vital Signs Temp 97.9 F 01/17/25 14:00 Pulse 119 H 01/17/25 14:00 Resp 22 H 01/17/25 14:00 BP 127/81 01/17/25 14:00 Pulse Ox 99 01/17/25 14:00 O2 Del Method Room Air 01/17/25 14:00 Data NPU 01/04/25 15:12 01/04/25 15:12 A&P Assessment and plan (1) Schizophreniform disorder: (2) Psychosis: Qualifiers: Psychosis type: unspecified psychosis type Qualified Code(s): F29 - Unspecified psychosis not due to a substance or known physiological condition Plan 24-year-old female admitted involuntarily with increased erratic behavior and continued evidence of psychotic symptoms. She appears at this time unwilling to consider psychotropic medications. 1. Continue current medication. Continue abilify to 15mg daily. Increased to 20 mg p.o. daily. Increase to 30 mg p.o. daily. Will likely need to switch to Invega. Added Invega 3 mg p.o. daily we will start tapering Abilify shortly. Increased Invega to 6 mg tomorrow and we will begin likely tapering Abilify with some sign of response. Will decrease Abilify to 25 mg p.o. every morning. 2. Recommend sober living treatment at the highest level of care to which the patient is willing to commit 3. Continue every 15 minute checks for safety.??? Changed to one-to-one after reviewing videotape of her being aggressive towards another patient. 4. Will attempt to gather collateral information. 5. Patient placed on 21-day hold on 01/11/2025. PDMP PDMP Reviewed: Not Reviewed Involuntary Hold Information 2 Hold Status: Legal Status: 21 Day Hold Date/Time Hold Expires: 02/01/25 Attestations NPU 2 Medical Necessity Statement*: Inpatient hospitalization is medically necessary and the clinically appropriate intervention ?at this time.? We will monitor/initiate medications and make changes as indicated.? The patient?s likely length of stay 7-10 days. Coding Level of Care Code Acute Code for g Fwd Diagnoses Schizophreniform disorder F20.81 Psychosis F29 Psychosis type: unspecified psychosis type
[2025-01-17] MEDS: ziprasidone hcl 40 mg Capsule PO (18:06)
--- NOTE | 2025-01-17 18:33 | PC.NURSE ---
PT CONTINUES TO COME TO NURSES STATION WANTING SOMETHING TO SLEEP, PT WAS HALDOL 5 MG ORDERED FOR ANXIETY AND AGITATION. PT KEPT COMING TO NURSING STATION FOR VARIOUS ISSUES AND WANTING SOMETHING TO SLEEP. RN ASKED PT IF SHE WAS HAVING ANXIETY AND PT STATED YES. THIS RN PULLED GEODON 40 MG AND WENT TO GIVE IT BUT PT REFUSED STATING I WILL JUST TAKE THE GUM. PT THEN REQUESTED TO LOOK AT SOME BOOKS. WHEN RN ASSISTED PT TO LOOK AT BOOKS SHE STATED OH CAN I GET SOMETHING FOR HALLUCINATIONS? RN STATED YES SHE COULD. PT WAS IN BED RESTING, RN WENT TO GIVE GEODON 40 MG AND PT DID TAKE IT. PT APPEARS HIGHLY PARANOID AND AGITATED AT TIMES. SECURITY ONE ON ONE CONTINUES FOR SAFETY OF PT AND PEERS. SUPPORT VOICED.
[2025-01-17 20:38] VITALS: BP 110/82; PULSE 113; RESP 17; TEMP 37; O2SAT 95
[2025-01-17] MEDS: trazodone 50 mg Tablet PO (22:01)
[2025-01-17] MEDS: OLANZapine 5 mg ODT PO (22:01)
[2025-01-17] MEDS: docusate sodium 100 mg Capsule PO (22:01)
[2025-01-18 06:00] VITALS: BP 109/64; PULSE 102; RESP 16; TEMP 36.7; O2SAT 96
[2025-01-18] MEDS: nicotine 2 mg Gum BUCCAL ×2 (08:49→10:42)
[2025-01-18] MEDS: paliperidone ER 6 mg Tablet PO (08:49)
[2025-01-18] MEDS: ARIPiprazole 10 mg Tablet 25 MG PO (08:49)
[2025-01-18] MEDS: hyDROXYzine 25 mg Capsule 50 MG PO ×2 (08:50→20:13)
[2025-01-18] MEDS: haloperidol 5 mg Tablet PO (11:55)
[2025-01-18] MEDS: ziprasidone hcl 40 mg Capsule PO (12:56)
[2025-01-18 14:00] VITALS: BP 109/76; PULSE 109; RESP 18; TEMP 36.7; O2SAT 98
--- NOTE | 2025-01-18 15:01 | P.NPUPN_ITS ---
Subjective NPU 2 Subjective: Patient presented today continuing to endorse that she is doing okay. She did seem a little less foggy per staff reports and direct observation. She denied any urges to hurt herself or anyone else. She reports that she thinks she likes how the medication is feeling. She was much more communicative and a very unchallenging way. She denied any side effects to the medication and we discussed the likelihood of decreasing her Abilify to 20 mg possibly tomorrow. Mental Status Exam 2 MSE Comments: This is a well-nourished well-developed white female in hospital scrubs with with improved hygiene and grooming but limited eye contact. No abnormal movements except for psychomotor retardation. More cooperative with exam today in mild distress. She remained guarded on interview. Speech was limited and decreased rate and volume. Mood described as I do not know, affect irritable, subdued and odd. Her thought process linear. Her thought content showed no evidence of homicidal or suicidal ideation. There were reports of paranoia and significant guardedness noted. 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 She at times appeared to be responding to internal stimuli and was reporting auditory hallucinations still being present. Her attention span was poor. She was alert and oriented to person, place and time. Recent and remote memory were impaired. Impulse control appeared poor. Insight is impaired. Judgment is poor. Vitals/I&O/Wt Last Vital Signs Temp 98.1 F 01/18/25 14:00 Pulse 109 H 01/18/25 14:00 Resp 18 01/18/25 14:00 BP 109/76 01/18/25 14:00 Pulse Ox 98 01/18/25 14:00 O2 Del Method Room Air 01/18/25 14:00 Data NPU 01/04/25 15:12 01/04/25 15:12 A&P Assessment and plan (1) Schizophreniform disorder: (2) Psychosis: Qualifiers: Psychosis type: unspecified psychosis type Qualified Code(s): F29 - Unspecified psychosis not due to a substance or known physiological condition Plan 24-year-old female admitted involuntarily with increased erratic behavior and continued evidence of psychotic symptoms. She appears at this time unwilling to consider psychotropic medications. 1. Continue current medication. Continue abilify to 15mg daily. Increased to 20 mg p.o. daily. Increase to 30 mg p.o. daily. Will likely need to switch to Invega. Added Invega 3 mg p.o. daily we will start tapering Abilify shortly. Increased Invega to 6 mg tomorrow and we will begin likely tapering Abilify with some sign of response. We decreased the Abilify to 25 mg p.o. every morning. We will likely decrease to 20 mg in a couple of days. 2. Recommend sober living treatment at the highest level of care to which the patient is willing to commit 3. Continue every 15 minute checks for safety.??? Changed to one-to-one after reviewing videotape of her being aggressive towards another patient. 4. Will attempt to gather collateral information. 5. Patient placed on 21-day hold on 01/11/2025. PDMP PDMP Reviewed: Not Reviewed Involuntary Hold Information 2 Hold Status: Legal Status: 21 Day Hold Date/Time Hold Expires: 02/11/25 Attestations NPU 2 Medical Necessity Statement*: Inpatient hospitalization is medically necessary and the clinically appropriate intervention ?at this time.? We will monitor/initiate medications and make changes as indicated.? The patient?s likely length of stay 7-10 days. Coding Level of Care Code Acute Code for [facility] Fwd Diagnoses Schizophreniform disorder F20.81 Psychosis F29 Psychosis type: unspecified psychosis type
[2025-01-18] MEDS: benztropine 1 mg Tablet PO (15:06)
[2025-01-18] MEDS: LORazepam 2 mg/mL INJ 1 mL IM (15:06)
--- NOTE | 2025-01-18 15:10 | PC.NURSE ---
PT WALKING DOWN HALLWAY AND GOING TO THE BATHROOM, THROWING WATER ON HER FACE AND CHEST. PT APPEARS TO HAVE TWITCHING OF THE ARMS AND TICS WITH THRASHING HER ARMS ABOUT. DR. BENAVIDES NOTIFIED OBSERVATIONS. PT WAS GIVEN COGENTIN 1 MG PO AND ATIVAN 2 MG IM FOR EPS SYMPTOMS. WHEN RN WAS ADMINISTERING INJECTION PT PULLED AWAY AND INSISTED THE OTHER ARM BE USED. ATIVAN WAS ADMINISTERED IN RIGHT DELTOID. PT HELD SECURITY GUARDS HANDS AND DID TOLERATE INJECTION. PT STOOD UP AND RN ASSISTED PT TO BED. PT LAID DOWN FOR A SHORT TIME AND THEN GOT BACK UP AND WAS RESTLESS. ONE TO ONE SECURITY AT SIDE FOR SAFETY.
[2025-01-18] MEDS: trazodone 50 mg Tablet PO (20:13)
[2025-01-18 21:28] VITALS: BP 108/71; PULSE 103; RESP 18; O2SAT 99
[2025-01-19 06:00] VITALS: BP 98/58; PULSE 95; RESP 16; TEMP 36.9; O2SAT 97
[2025-01-19] MEDS: paliperidone ER 6 mg Tablet PO (08:08)
[2025-01-19] MEDS: ARIPiprazole 10 mg Tablet 25 MG PO (08:08)
[2025-01-19] MEDS: nicotine 4 mg lozenge MUCOUS MEM (08:09)
--- NOTE | 2025-01-19 08:48 | W.PM.NPUPNS ---
Subjective NPU Subjective: Patient presented today reporting that things are going fine. She seemed to be more communicative per staff reports and direct observation. She reports that the medications seem to be working and she was able to identify that she was not having any self-directed or aggression felt towards other people. She had a visitor and appeared to be able to engage in a more functional way per staff reports and direct observation. She denied any side effects to the medication. We discussed the risks, benefits and alternatives of decreasing the Abilify to 20 mg in the morning and she understood and agreed to proceed as is documented in this note. Mental Status Exam MSE Comments: This is a well-nourished well-developed white female in hospital scrubs with with improved hygiene and grooming but limited eye contact. No abnormal movements except for psychomotor retardation. More cooperative with exam today in mild distress. She remained guarded on interview. Speech was limited and decreased rate and volume. Mood described as I do not know, affect irritable, subdued and odd. Her thought process linear. Her thought content showed no evidence of homicidal or suicidal ideation. There were reports of paranoia and significant guardedness noted. 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 She at times appeared to be responding to internal stimuli and was reporting auditory hallucinations still being present. Her attention span was poor. She was alert and oriented to person, place and time. Recent and remote memory were impaired. Impulse control appeared poor. Insight is impaired. Judgment is poor. Vitals/I&O/Wt Last Vital Signs Temp 98.4 F 01/19/25 06:00 Pulse 95 01/19/25 06:00 Resp 16 01/19/25 06:00 BP 98/58 01/19/25 06:00 Pulse Ox 97 01/19/25 06:00 O2 Del Method Room Air 01/18/25 14:00 Data NPU 01/04/25 15:12 01/04/25 15:12 A&P Assessment and plan (1) Schizophreniform disorder: (2) Psychosis: Qualifiers: Psychosis type: unspecified psychosis type Qualified Code(s): F29 - Unspecified psychosis not due to a substance or known physiological condition Plan 24-year-old female admitted involuntarily with increased erratic behavior and continued evidence of psychotic symptoms. She appears at this time unwilling to consider psychotropic medications. 1. Continue current medication. Continue abilify to 15mg daily. Increased to 20 mg p.o. daily. Increase to 30 mg p.o. daily. Will likely need to switch to Invega. Added Invega 3 mg p.o. daily we will start tapering Abilify shortly. Increased Invega to 6 mg tomorrow and we will begin likely tapering Abilify with some sign of response. We decreased the Abilify to 25 mg p.o. every morning. Decrease to 20 mg in the morning. 2. Recommend sober living treatment at the highest level of care to which the patient is willing to commit 3. Continue every 15 minute checks for safety.??? Changed to one-to-one after reviewing videotape of her being aggressive towards another patient. 4. Will attempt to gather collateral information. 5. Patient placed on 21-day hold on 01/11/2025. PDMP PDMP Reviewed: Not Reviewed Involuntary Hold Information Hold Status: Legal Status: 21 Day Hold Date/Time Hold Expires: 02/11/25 Attestations NPU Medical Necessity Statement*: Inpatient hospitalization is medically necessary and the clinically appropriate intervention ?at this time.? We will monitor/initiate medications and make changes as indicated.? The patient?s likely length of stay 7-10 days. Coding Level of Care Code Acute Code for [facility] Fwd Diagnoses Schizophreniform disorder F20.81 Psychosis F29 Psychosis type: unspecified psychosis type
[2025-01-19] MEDS: nicotine 2 mg Gum BUCCAL ×2 (12:05→14:54)
[2025-01-19 14:00] VITALS: BP 86/54; PULSE 98; RESP 16; TEMP 36.8; O2SAT 98
[2025-01-19] MEDS: OLANZapine 5 mg ODT PO (18:41)
[2025-01-19 20:07] VITALS: BP 93/57; PULSE 102; RESP 18; TEMP 37.2; O2SAT 97
[2025-01-19] MEDS: hyDROXYzine 25 mg Capsule 50 MG PO (20:30)
[2025-01-19] MEDS: trazodone 50 mg Tablet PO (20:30)
[2025-01-20] MEDS: haloperidol 5 mg Tablet PO ×2 (03:37→16:23)
[2025-01-20] MEDS: OLANZapine 5 mg ODT PO (05:34)
[2025-01-20 06:00] VITALS: BP 100/62; PULSE 106; RESP 18; O2SAT 93
[2025-01-20] MEDS: ARIPiprazole 10 mg Tablet 20 MG PO (08:19)
[2025-01-20] MEDS: paliperidone ER 6 mg Tablet PO (08:19)
[2025-01-20] MEDS: nicotine 2 mg Gum BUCCAL ×2 (09:06→13:31)
[2025-01-20] MEDS: acetaminophen 325 mg Tablet 650 MG PO (10:03)
[2025-01-20] MEDS: hyDROXYzine 25 mg Capsule 50 MG PO ×2 (11:52→20:31)
--- NOTE | 2025-01-20 11:53 | PC.NURSE ---
prn Vistaril 50 mg given po per pt c/o stated anxiety
[2025-01-20 14:00] VITALS: BP 127/72; PULSE 87; RESP 18; TEMP 36.6; O2SAT 98
[2025-01-20] MEDS: magnesium hydroxide 30 mL UDC PO (14:19)
[2025-01-20] MEDS: docusate sodium 100 mg Capsule PO (17:38)
[2025-01-20] MEDS: nicotine 4 mg lozenge MUCOUS MEM ×2 (18:09→18:13)
--- NOTE | 2025-01-20 18:13 | PC.NURSE ---
PATIENT ACCIDENTLY DROPPED HER LOZENGE INTO THE TOILET, OBSERVED BY SECURITY. ADMINISTERED ONE LOZENGE
--- NOTE | 2025-01-20 18:18 | P.NPUPN_ITS ---
Subjective NPU 2 Subjective: Patient presented today reporting that she is doing a little better. She reports that she is tolerating the medications without issue. We discussed continuing to taper the Abilify by 5 to 10 mg in the next day or so discussing the risks, benefits and alternatives and she understood and agreed to proceed as is documented in this note. No aggressive actions today and none since she punched the wall a couple days ago. She denied any side effects to the medication. Mental Status Exam 2 MSE Comments: This is a well-nourished well-developed white female in hospital scrubs with with improved hygiene and grooming and improved eye contact. No abnormal movements except for psychomotor retardation. More cooperative with exam today in mild distress. She remained guarded on interview. Speech was more productive and and more normal rate and volume. Mood described as feeling a little better, affect less irritable, subdued and odd. Her thought process linear. Her thought content showed no evidence of homicidal or suicidal ideation. There were reports of paranoia and significant guardedness noted. There were no other delusions reported or noted. She did not appear to be responding to internal stimuli and was reporting less auditory hallucinations being present. Attention and concentration are improving. She was alert and oriented to person, place and time. Recent and remote memory were impaired. Impulse control appeared poor. Insight is impaired. Judgment is poor. Vitals/I&O/Wt Last Vital Signs Temp 98.4 F 01/20/25 20:10 Pulse 102 H 01/20/25 20:10 Resp 18 01/20/25 20:10 BP 113/63 01/20/25 20:10 Pulse Ox 99 01/20/25 20:10 O2 Del Method Room Air 01/20/25 20:10 Weight last 48 hrs Weight 60.509 kg Data NPU 01/04/25 15:12 01/04/25 15:12 A&P Assessment and plan (1) Schizophreniform disorder: (2) Psychosis: Qualifiers: Psychosis type: unspecified psychosis type Qualified Code(s): F29 - Unspecified psychosis not due to a substance or known physiological condition Plan 24-year-old female admitted involuntarily with increased erratic behavior and continued evidence of psychotic symptoms. She appears at this time unwilling to consider psychotropic medications. 1. Continue current medication. Continue abilify to 15mg daily. Increased to 20 mg p.o. daily. Increase to 30 mg p.o. daily. Will likely need to switch to Invega. Added Invega 3 mg p.o. daily we will start tapering Abilify shortly. Increased Invega to 6 mg tomorrow and we will begin likely tapering Abilify with some sign of response. We decreased the Abilify to 25 mg p.o. every morning. Decreased to 20 mg. Will decrease to 15 mg in a day or 2. 2. Recommend sober living treatment at the highest level of care to which the patient is willing to commit 3. Continue every 15 minute checks for safety.??? Changed to one-to-one after reviewing videotape of her being aggressive towards another patient. 4. Will attempt to gather collateral information. 5. Patient placed on 21-day hold on 01/11/2025. PDMP PDMP Reviewed: Not Reviewed Involuntary Hold Information 2 Hold Status: Legal Status: 21 Day Hold Date/Time Hold Expires: 02/11/25 Attestations NPU 2 Medical Necessity Statement*: Inpatient hospitalization is medically necessary and the clinically appropriate intervention ?at this time.? We will monitor/initiate medications and make changes as indicated.? The patient?s likely length of stay 7-10 days. Coding Level of Care Code Acute Code for [facility] Fwd Diagnoses Schizophreniform disorder F20.81 Psychosis F29 Psychosis type: unspecified psychosis type
--- NOTE | 2025-01-20 19:04 | PC.NURSE ---
haldol Haldol adminsitered for hallucinations. After about one hour patient reported that she is no longer having hallucinations
[2025-01-20 20:10] VITALS: BP 113/63; PULSE 102; RESP 18; TEMP 36.9; O2SAT 99
[2025-01-20] MEDS: trazodone 50 mg Tablet PO (20:30)
[2025-01-20] MEDS: ondansetron 4 MG Tablet PO (20:30)
[2025-01-21] MEDS: OLANZapine 5 mg ODT PO ×2 (02:31→09:20)
[2025-01-21] MEDS: haloperidol 5 mg Tablet PO ×2 (04:42→09:11)
[2025-01-21 05:50] VITALS: BP 94/59; PULSE 95; RESP 18; O2SAT 98
[2025-01-21] MEDS: paliperidone ER 6 mg Tablet PO (08:17)
[2025-01-21] MEDS: ARIPiprazole 10 mg Tablet 20 MG PO (08:17)
[2025-01-21] MEDS: nicotine 2 mg Gum BUCCAL (08:20)
[2025-01-21] MEDS: ondansetron 4 MG Tablet PO (09:11)
[2025-01-21] MEDS: LORazepam 2 mg/mL INJ 1 mL IM (09:54)
[2025-01-21] MEDS: diphenhydrAMINE 50 mg/mL SDV 1mL IM (09:54)
--- NOTE | 2025-01-21 09:54 | PC.NURSE ---
haldol Patient at [facility], reporting that she is having hallucinations. This nurse administered haldol 5mg PO. About 15 minutes later, patient at [facility] stating that she is having a panic attack. This nurse obtained zyprexa. Patient refused this medication because it makes her too tired . Despite attempts to convince her otherwise, patient continued to refuse. Patient said I need shots . This nurse called Dr. Harvey. Dr. Harvey was agreeable with shots if patient did not calm down after about 30 minutes. While this nurse was in med room talking to Dr. Harvey on the phone, patient was attempting to get out of the door and also grabbing hold of the glass and pulling on it. Patient had a vacant look in her eyes, not saying anything. This nurse administered ativan 2mg into patient's left deltoid. SEYMOUR Partida administered benadryl 50mg into patient's right deltoid. Patient tolerated these injections well. Patient was then helped to her bed by staff. Patient rested in bed for a short time, and is currently in group. Patient does not appear distressed.
[2025-01-21 14:00] VITALS: BP 92/49; PULSE 112; RESP 18; TEMP 36.8; O2SAT 96
--- NOTE | 2025-01-21 17:19 | P.NPUPN_ITS ---
Subjective NPU 2 Subjective: Patient presented today reporting that she is doing all right. She reported that she had some moments earlier in the day that were great but that she has been doing fine this afternoon. She denied having any aggressive feelings of thoughts towards herself or anyone else. We discussed the risks, benefits and alternatives of increasing her Invega to 9 mg p.o. daily and she understood and agreed to proceed as is documented in this note. She denied any side effects of the medication and we agreed to be deliberate in her Abilify discontinuation given her current improvements. Mental Status Exam 2 MSE Comments: This is a well-nourished well-developed white female in hospital scrubs with with improved hygiene and grooming and improved eye contact. No abnormal movements except for psychomotor retardation. More cooperative with exam today in mild distress. She remained guarded on interview. Speech was more productive and and more normal rate and volume. Mood described as feeling a little better, affect less irritable, subdued and odd. Her thought process linear. Her thought content showed no evidence of homicidal or suicidal ideation. There were reports of paranoia and significant guardedness noted. There were no other delusions reported or noted. She did not appear to be responding to internal stimuli and was reporting less auditory hallucinations being present. Attention and concentration are improving. She was alert and oriented to person, place and time. Recent and remote memory were impaired. Impulse control appeared poor. Insight is impaired. Judgment is poor. Vitals/I&O/Wt Last Vital Signs Temp 98.2 F 01/21/25 14:00 Pulse 112 H 01/21/25 14:00 Resp 18 01/21/25 14:00 BP 92/49 01/21/25 14:00 Pulse Ox 96 01/21/25 14:00 O2 Del Method Room Air 01/20/25 20:10 Weight last 48 hrs Weight 60.509 kg Data NPU 01/04/25 15:12 01/04/25 15:12 A&P Assessment and plan (1) Schizophreniform disorder: (2) Psychosis: Qualifiers: Psychosis type: unspecified psychosis type Qualified Code(s): F29 - Unspecified psychosis not due to a substance or known physiological condition Plan 24-year-old female admitted involuntarily with increased erratic behavior and continued evidence of psychotic symptoms. She appears at this time unwilling to consider psychotropic medications. 1. Continue current medication. Continue abilify to 15mg daily. Increased to 20 mg p.o. daily. Increase to 30 mg p.o. daily. Will likely need to switch to Invega. Added Invega 3 mg p.o. daily we will start tapering Abilify shortly. Increased Invega to 6 mg tomorrow and we will begin likely tapering Abilify with some sign of response. We decreased the Abilify to 25 mg p.o. every morning. Decreased to 20 mg. Will decrease to 15 mg in a day or 2. Increase Invega to 9 mg p.o. daily 2. Recommend sober living treatment at the highest level of care to which the patient is willing to commit 3. Continue every 15 minute checks for safety.??? Changed to one-to-one after reviewing videotape of her being aggressive towards another patient. 4. Will attempt to gather collateral information. 5. Patient placed on 21-day hold on 01/11/2025. PDMP PDMP Reviewed: Not Reviewed Involuntary Hold Information 2 Hold Status: Legal Status: 21 Day Hold Date/Time Hold Expires: 02/11/25 Attestations NPU 2 Medical Necessity Statement*: Inpatient hospitalization is medically necessary and the clinically appropriate intervention ?at this time.? We will monitor/initiate medications and make changes as indicated.? The patient?s likely length of stay 7-10 days. Coding Level of Care Code Acute Code for g Fwd Diagnoses Schizophreniform disorder F20.81 Psychosis F29 Psychosis type: unspecified psychosis type
[2025-01-21] MEDS: paliperidone ER 3 mg Tablet PO (18:51)
[2025-01-21 20:26] VITALS: BP 88/57; PULSE 121; RESP 18; TEMP 36.9; O2SAT 95
[2025-01-21] MEDS: trazodone 50 mg Tablet PO (20:35)
[2025-01-21] MEDS: hyDROXYzine 25 mg Capsule 50 MG PO (20:35)
[2025-01-22] MEDS: OLANZapine 5 mg ODT PO ×2 (04:25→22:32)
[2025-01-22 06:00] VITALS: BP 96/62; PULSE 110; RESP 16; TEMP 37.1
[2025-01-22] MEDS: paliperidone ER 9 mg Tablet PO (08:39)
[2025-01-22] MEDS: ARIPiprazole 10 mg Tablet 20 MG PO (08:39)
[2025-01-22] MEDS: acetaminophen 325 mg Tablet 650 MG PO (08:47)
[2025-01-22] MEDS: hyDROXYzine 25 mg Capsule 50 MG PO ×3 (09:56→21:05)
[2025-01-22] MEDS: haloperidol 5 mg Tablet PO (10:51)
[2025-01-22] MEDS: nicotine 2 mg Gum BUCCAL ×3 (11:50→20:26)
[2025-01-22 14:00] VITALS: BP 84/57; PULSE 145; RESP 17; TEMP 36.3; O2SAT 96
[2025-01-22] MEDS: diphenhydrAMINE 50 mg/mL SDV 1mL IM (18:01)
[2025-01-22] MEDS: haloperidol inj 5 mg/mL INJ 1 mL IM (18:01)
[2025-01-22] MEDS: LORazepam 2 mg/mL INJ 1 mL IM (18:01)
--- NOTE | 2025-01-22 18:01 | PC.NURSE ---
Pt becoming increasingly agitated, pacing in room and making herself vomit. Pt also trying to pull out her own teeth. Charge nurse Young and SEYMOUR Bradley administered 2mg IM Ativan, 50mg IM Benadryl, 5mg IM Haldol to both deltoids, pt tolerated well. 1:1 Sitter was present [employer] Armando.
--- NOTE | 2025-01-22 18:30 | P.NPUPN_ITS ---
Subjective NPU 2 Subjective: Patient presented today reporting that she is doing okay. She discussed having some difficulties with sleep and we agreed to monitor that more closely. We discussed the continued cross titration of Invega and Abilify and she endorses that she is doing fine with the current doses. We discussed the desire to get her down to at least 15 mg of Abilify and trust that the Invega is working and providing some of the changes that we see. She continues to endorse having some occasional auditory hallucinations but no visual hallucinations and reports feeling a little better each day. She denied any specific side effects to the medication. Mental Status Exam 2 MSE Comments: This is a well-nourished well-developed white female in hospital scrubs with with improved hygiene and grooming and improved eye contact. No abnormal movements except for psychomotor retardation. More cooperative with exam today in mild distress. She remained guarded on interview. Speech was more productive and and more normal rate and volume. Mood described as feeling a little better, affect less irritable, subdued and odd. Her thought process linear. Her thought content showed no evidence of homicidal or suicidal ideation. There were reports of paranoia and significant guardedness noted. There were no other delusions reported or noted. She did not appear to be responding to internal stimuli and was reporting less auditory hallucinations being present. Attention and concentration are improving. She was alert and oriented to person, place and time. Recent and remote memory were impaired. Impulse control appeared poor. Insight is impaired. Judgment is poor. Vitals/I&O/Wt Last Vital Signs Temp 97.6 F 01/22/25 20:04 Pulse 118 H 01/22/25 20:04 Resp 17 01/22/25 20:04 BP 91/60 01/22/25 20:04 Pulse Ox 99 01/22/25 20:04 O2 Del Method Room Air 01/22/25 20:04 O2 Flow Rate 97 01/22/25 06:00 Data NPU 01/04/25 15:12 01/04/25 15:12 A&P Assessment and plan (1) Schizophreniform disorder: (2) Psychosis: Qualifiers: Psychosis type: unspecified psychosis type Qualified Code(s): F29 - Unspecified psychosis not due to a substance or known physiological condition Plan 24-year-old female admitted involuntarily with increased erratic behavior and continued evidence of psychotic symptoms. She appears at this time unwilling to consider psychotropic medications. 1. Continue current medication. Continue abilify to 15mg daily. Increased to 20 mg p.o. daily. Increase to 30 mg p.o. daily. Will likely need to switch to Invega. Added Invega 3 mg p.o. daily we will start tapering Abilify shortly. Increased Invega to 6 mg tomorrow and we will begin likely tapering Abilify with some sign of response. We decreased the Abilify to 25 mg p.o. every morning. Decreased to 20 mg. Will decrease to 15 mg in a day or 2. Increased Invega to 9 mg p.o. daily 2. Recommend sober living treatment at the highest level of care to which the patient is willing to commit 3. Continue every 15 minute checks for safety.??? Changed to one-to-one after reviewing videotape of her being aggressive towards another patient. 4. Will attempt to gather collateral information. 5. Patient placed on 21-day hold on 01/11/2025. PDMP PDMP Reviewed: Not Reviewed Involuntary Hold Information 2 Hold Status: Legal Status: 21 Day Hold Date/Time Hold Expires: 02/11/25 Attestations NPU 2 Medical Necessity Statement*: Inpatient hospitalization is medically necessary and the clinically appropriate intervention ?at this time.? We will monitor/initiate medications and make changes as indicated.? The patient?s likely length of stay 7-10 days. Coding Level of Care Code Acute Code for [facility] [place] Fwd Diagnoses Schizophreniform disorder F20.81 Psychosis F29 Psychosis type: unspecified psychosis type
[2025-01-22 20:04] VITALS: BP 91/60; PULSE 118; RESP 17; TEMP 36.4; O2SAT 99
[2025-01-22] MEDS: trazodone 50 mg Tablet PO ×2 (21:05→22:32)
[2025-01-23 06:00] VITALS: BP 98/60; PULSE 119; RESP 16; TEMP 37.4; O2SAT 97
[2025-01-23] MEDS: ARIPiprazole 10 mg Tablet 15 MG PO (08:06)
[2025-01-23] MEDS: paliperidone ER 9 mg Tablet PO (08:06)
[2025-01-23] MEDS: nicotine 2 mg Gum BUCCAL ×2 (08:08→12:11)
[2025-01-23 14:00] VITALS: RESP 17
--- NOTE | 2025-01-23 18:18 | PC.NURSE ---
DUE TO SEVERE WEATHER, VITALS WERE NOT OBTAINED OTHER THAN RESPIRATIONS WERE OBTAINED AT 17. CHARGE NURSE NOTIFIED.
[2025-01-23] MEDS: haloperidol 5 mg Tablet PO (18:33)
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
[2025-01-23] MEDS: hyDROXYzine 25 mg Capsule 50 MG PO (20:16)
[2025-01-23] MEDS: trazodone 50 mg Tablet PO ×2 (20:16→23:13)
[2025-01-23 20:51] VITALS: BP 117/72; PULSE 124; RESP 16; TEMP 37.5; O2SAT 98
--- NOTE | 2025-01-23 23:07 | PC.NURSE ---
earlier in the evening pt. requested something for sleep and anxiety. Pt. had already had Trasadone and Vistaril, so signee pulled another Trazadone and Zyprexa for pt, when signee came back to the window pt. had changed her mind and decided she did not want the medication, so signee returned the medication to the [facility]. Then a couple hours later pt. comes back up to the nurses station requesting something for sleep and anxiety and singee let pt. know she could have a Trazadone and Zyprexa and pt. replied ok. Signee went and pulled them from the [facility] and came back to the window and pt. said. I think i'm not going to take them right now. I think I'm going to think about it for a while. Then about 5 to 10 min later the pt. came back up to the window and said ok, I'm ready to take my medications now. Pt. did finally take the medication.
[2025-01-23] MEDS: OLANZapine 5 mg ODT PO (23:12)
[2025-01-24 06:00] VITALS: BP 84/55; PULSE 111; RESP 17; TEMP 37; O2SAT 97
[2025-01-24] MEDS: ziprasidone hcl 40 mg Capsule PO (08:24)
[2025-01-24] MEDS: paliperidone ER 9 mg Tablet PO (08:24)
[2025-01-24] MEDS: ARIPiprazole 10 mg Tablet 15 MG PO (08:25)
[2025-01-24] MEDS: nicotine 2 mg Gum BUCCAL ×3 (08:25→20:34)
[2025-01-24] MEDS: docusate sodium 100 mg Capsule PO (08:28)
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
[2025-01-24] MEDS: LORazepam 2 mg/mL INJ 1 mL IM (11:26)
[2025-01-24] MEDS: diphenhydrAMINE 50 mg/mL SDV 1mL IM (11:26)
[2025-01-24] MEDS: haloperidol inj 5 mg/mL INJ 1 mL IM (11:26)
[2025-01-24 12:25] VITALS: BP 119/69; PULSE 133; RESP 18; TEMP 36.8; O2SAT 98
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
[2025-01-24 12:55] VITALS: BP 113/69; PULSE 139; RESP 17; O2SAT 97
[2025-01-24 13:54] VITALS: BP 106/65; PULSE 133; RESP 17; O2SAT 98
[2025-01-24] MEDS: hyDROXYzine 25 mg Capsule 50 MG PO ×2 (15:10→21:30)
--- NOTE | 2025-01-24 15:18 | PC.NURSE ---
PT CONTINUES TO COME TO NURSES STATION AND ASK FOR THAT GREEN MEDICINE. PT WAS EDUCATED THAT SHE HAS ALREADY TAKEN THE HALDOL BY INJECTION BUT CAN TAKE VISTARIL OR ZYDIS. PT RECEIVED VISTARIL 50 MG PO ORDERED FOR ANXIETY AND EDUCATED THAT IF SHE CONTINUES TO FEEL ANXIOUS TO LET STAFF KNOW. IT WAS NOTED THAT SOON PTS MOTHER CAME FOR VISIT PT CAME UP TO THE NURSES STATION AND WANTED MEDICATIONS.
--- NOTE | 2025-01-24 15:27 | PC.NURSE ---
SEE VITAL SIGN FLOW SHEET FOR FREQUENT VITALS DUE TO TAKING ATIVAN, BENADRYL AND HALDOL INJECTIONS.
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
[2025-01-24 19:58] VITALS: BP 110/65; PULSE 118; RESP 20; TEMP 36.4; O2SAT 98
[2025-01-24] MEDS: trazodone 50 mg Tablet PO (21:30)
[2025-01-24] MEDS: OLANZapine 5 mg ODT PO (21:30)
[2025-01-25 06:00] VITALS: BP 95/56; PULSE 106; RESP 16; O2SAT 98
--- NOTE | 2025-01-25 10:39 | PC.NURSE ---
Pt has been resting in bed all morning with eyes closed. This is the first this shift has seen her sleep like this in some time and we have just let her rest. She has struggled with insomnia and short bursts of sleeping. Nursing staff has encouraged everyone to just let her be.
[2025-01-25] MEDS: ARIPiprazole 10 mg Tablet 15 MG PO (11:49)
[2025-01-25] MEDS: paliperidone ER 9 mg Tablet PO (11:49)
[2025-01-25 14:00] VITALS: BP 95/65; PULSE 137; RESP 18; TEMP 36.6; O2SAT 95
[2025-01-25] MEDS: nicotine 2 mg Gum BUCCAL (14:22)
[2025-01-25] MEDS: haloperidol 5 mg Tablet PO (16:18)
[2025-01-25] MEDS: LORazepam 2 mg Tablet PO (17:42)
[2025-01-25] MEDS: diphenhydrAMINE 50 mg Capsule PO (17:42)
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
[2025-01-25 20:20] VITALS: BP 100/65; PULSE 88; RESP 16; O2SAT 96
[2025-01-26 06:00] VITALS: BP 113/75; PULSE 104; RESP 16; O2SAT 97
[2025-01-26] MEDS: ARIPiprazole 10 mg Tablet 15 MG PO (07:59)
[2025-01-26] MEDS: paliperidone ER 9 mg Tablet PO (08:00)
--- NOTE | 2025-01-26 08:59 | PC.NURSE ---
Pt states that she slept well last night. She denies anxiety and depression. Denies SI/HI. Not had a bm. States that she has a runny nose and sore throat a little when she swallows. Was up to breakfast and then went back to sleep.
[2025-01-26 14:00] VITALS: BP 104/67; PULSE 105; RESP 17; TEMP 36.3; O2SAT 98
[2025-01-26] MEDS: nicotine 2 mg Gum BUCCAL ×2 (14:53→16:47)
[2025-01-26] MEDS: docusate sodium 100 mg Capsule PO (15:17)
[2025-01-26] MEDS: haloperidol 5 mg Tablet PO (15:17)
[2025-01-26] MEDS: ziprasidone 20 mg/mL SDV IM (17:43)
[2025-01-26] MEDS: diphenhydrAMINE 50 mg/mL SDV 1mL IM (17:43)
[2025-01-26] MEDS: LORazepam 2 mg/mL INJ 1 mL IM (17:43)
--- NOTE | 2025-01-26 17:44 | PC.NURSE ---
Pt came to nurses station requesting an injection for her anxiety. Dr. Harvey was here seeing pt and recommended that we do Benadryl 50mg IM, Geodon 20mg IM, and Ativan 2mg IM. Pt was happy with this order and sat on side of bed and received meds. She was smiles after receiving them.
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
[2025-01-26 22:00] VITALS: RESP 16
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
[2025-01-27 06:00] VITALS: BP 102/67; PULSE 98; RESP 16; TEMP 36.6; O2SAT 98
[2025-01-27] MEDS: ARIPiprazole 10 mg Tablet 15 MG PO (08:05)
[2025-01-27] MEDS: paliperidone ER 9 mg Tablet PO (08:05)
[2025-01-27] MEDS: nicotine 2 mg Gum BUCCAL ×3 (08:05→18:39)
[2025-01-27] MEDS: ziprasidone hcl 40 mg Capsule PO ×2 (10:55→20:14)
--- NOTE | 2025-01-27 10:57 | PC.NURSE ---
Patient at window, states that she is not going to be taking any more medications. This nurse asked why she no longer wants medications. Aretha said that she is on too many . This nurse explained that the doctor is weaning her off of one medication in the morning. Patient asked if she could be off of all medications, if the doctor will take her off all of them. This nurse educated patient about importance of medication compliance. Patient verbalized understanding, then asked for anti=anxiety medication. Adminstered maine 40,g PO to patient. Security present
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
[2025-01-27 14:00] VITALS: BP 109/64; PULSE 112; RESP 17; TEMP 36.7; O2SAT 97
[2025-01-27] MEDS: docusate sodium 100 mg Capsule PO (17:07)
[2025-01-27] MEDS: acetaminophen 325 mg Tablet 650 MG PO (17:36)
[2025-01-27] MEDS: haloperidol 5 mg Tablet PO ×2 (17:36→22:15)
[2025-01-27] MEDS: OLANZapine 5 mg ODT PO (18:40)
[2025-01-27 20:11] VITALS: RESP 16
[2025-01-27] MEDS: trazodone 50 mg Tablet PO ×2 (20:14→22:15)
--- NOTE | 2025-01-27 22:17 | PC.NURSE ---
Pt. expressed anxiety and was wanting something to help her sleep, signee gave pt. Geodon and trazadone. Pt. came back up to the nurses station requesting a shot. Pt. stated she was told to let staff know when she felt like she was going to bet aggressive again. Signee then gave pt. a Haldol and another Trazadone. Pt. replied I can't have the shot. Pt. is currently resting in bed with eyes closed. Security one on one is sitting outside pt. doorway. Door is fully open at this time.
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
[2025-01-28 06:00] VITALS: BP 102/63; PULSE 111; RESP 16; O2SAT 96
[2025-01-28] MEDS: ARIPiprazole 10 mg Tablet PO (09:56)
[2025-01-28] MEDS: paliperidone ER 9 mg Tablet PO (09:56)
[2025-01-28] MEDS: hyDROXYzine 25 mg Capsule 50 MG PO (09:56)
[2025-01-28] MEDS: ziprasidone hcl 40 mg Capsule PO (09:58)
[2025-01-28] MEDS: nicotine 2 mg Gum BUCCAL ×2 (10:05→17:45)
--- NOTE | 2025-01-28 10:17 | PC.NURSE ---
Pt is now laying down in bed resting after being up and eating breakfast. She is c/o having nasal congestion and requested an allergy med, will ask Dr about that today. She denies anxiety, but rates depression 3/. She is denying SI/HI and Hallucinations.
--- NOTE | 2025-01-28 12:51 | PC.NURSE ---
PT HAS COME TO THE NURSES STATION MULTIPLE TIMES REQUESTING SOME SHOTS, PT STATES SHE IS GETTING WORKED UP AND I NEED THEM. THIS RN HAS GIVEN PT VISTARIL 50 MG AND GEODON 40 MG WITH LITTLE EFFECTIVENESS. PT WAS OFFERED ZYDIS BY RN BUT PT DECLINED STATING NO I NEED THE SHOTS. PT WAS ENCOURAGED TO REST OR LAY DOWN. SHORTLY AFTER PT WAS OBSERVED PUNCHING THE ROWELL IN HER ROOM AND SECURITY HAD TO USE SAFE 3 TECHNIQUES TO KEEP PT FROM HARMING HERSELF AND PROPERTY. WHEN THIS RN ENTERED ROOM TO ASSIST SECURITY PT WAS OFFERED MEDICATION AND PT STATED NO THEN PT ASKED WHAT KIND OF MEDICATIONS, THE SHOTS? THIS RN STATED YES THE INJECTIONS. PT THEN STATED YES AND THEN SAT ON THE BED QUIETLY AND WAITED FOR INJECTIONS.
[2025-01-28] MEDS: haloperidol inj 5 mg/mL INJ 1 mL IM (13:21)
[2025-01-28] MEDS: LORazepam 2 mg/mL INJ 1 mL IM (13:21)
[2025-01-28] MEDS: diphenhydrAMINE 50 mg/mL SDV 1mL IM (13:21)
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
--- NOTE | 2025-01-28 13:36 | PC.NURSE ---
NEW ORDERS RECEIVED FROM DR. CLEARY TO SCHEDULE HALDOL 5 MG IM DAILY AT NOON DUE TO PTS FREQUENT ESCALATION OF BEHAVIORS TO RECEIVE INJECTABLE MEDICATIONS. ATTEMPTED EDUCATION ON NEW ORDERS BUT PT RESTING.
[2025-01-28 14:00] VITALS: RESP 17
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
[2025-01-28 15:55] VITALS: BP 82/46; PULSE 102; RESP 16; O2SAT 96
[2025-01-28 16:26] VITALS: BP 102/61; PULSE 101; RESP 16; O2SAT 96
[2025-01-28 17:02] VITALS: BP 99/67; PULSE 103; RESP 16; O2SAT 95
[2025-01-28 20:20] VITALS: RESP 16
[2025-01-29] MEDS: ziprasidone hcl 40 mg Capsule PO ×2 (01:22→12:55)
[2025-01-29] MEDS: trazodone 50 mg Tablet PO ×2 (01:22→23:44)
[2025-01-29 06:00] VITALS: BP 103/68; PULSE 92; RESP 16; O2SAT 97
[2025-01-29] MEDS: nicotine 2 mg Gum BUCCAL ×4 (07:54→16:09)
[2025-01-29] MEDS: ARIPiprazole 10 mg Tablet PO (08:55)
[2025-01-29] MEDS: paliperidone ER 9 mg Tablet PO (08:55)
[2025-01-29] MEDS: docusate sodium 100 mg Capsule PO (09:23)
[2025-01-29] MEDS: haloperidol inj 5 mg/mL INJ 1 mL IM (11:33)
[2025-01-29] MEDS: OLANZapine 5 mg ODT PO (13:44)
[2025-01-29 14:00] VITALS: BP 107/54; PULSE 125; RESP 18; TEMP 36.6; O2SAT 98
--- NOTE | 2025-01-29 14:21 | PC.NURSE ---
PT BEHAVIOR PT PERCEIVED 5MG HALDOL IM @1133. PT SAID SHE WAS ANXIOUS @ APPROXIMATELY 1250. THEN AT 1306 PT KICKED A HOLE IN WALL IN HER ROOM WITH HER HEAL. PT WAS TAKEN DOWN BY SECURITY, THEN PUT IN HER BED. PT SAID SHE WAS STILL ANXIOUS. SAID GIVE HER TIME FOR THE GEODON TO WORK, THEN PT SAID SHE WAS STILL ANXIOUS, PER ORDER, PT RECEIVED 5 MG OF ZYPREXA ZYDIS UNDER HER TONGUE AT 1344. WILL CONTINUE TO MONITOR.
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
[2025-01-29] MEDS: haloperidol 5 mg Tablet PO (16:09)
[2025-01-29] MEDS: diphenhydrAMINE 50 mg Capsule PO (16:09)
[2025-01-29] MEDS: LORazepam 2 mg Tablet PO (16:09)
[2025-01-29 20:16] VITALS: BP 95/46; PULSE 113; RESP 18; TEMP 36.8; O2SAT 96
[2025-01-29] MEDS: haloperidol 1 mg Tablet 2 MG PO (23:44)
[2025-01-29] MEDS: hyDROXYzine 25 mg Capsule 50 MG PO (23:46)
[2025-01-30 06:00] VITALS: BP 100/85; PULSE 103; RESP 18; TEMP 36.3; O2SAT 97
[2025-01-30] MEDS: paliperidone ER 6 mg Tablet PO (08:33)
[2025-01-30] MEDS: nicotine 2 mg Gum BUCCAL ×4 (08:33→17:35)
[2025-01-30] MEDS: haloperidol 5 mg Tablet PO ×2 (08:33→16:05)
[2025-01-30] MEDS: haloperidol inj 5 mg/mL INJ 1 mL IM (11:40)
[2025-01-30] MEDS: docusate sodium 100 mg Capsule PO (12:17)
[2025-01-30 14:00] VITALS: BP 108/65; PULSE 133; RESP 18; TEMP 37.1; O2SAT 97
[2025-01-30] MEDS: OLANZapine 5 mg ODT PO ×2 (16:39→20:45)
--- NOTE | 2025-01-30 16:40 | PC.NURSE ---
haldol Haldol administered for [facility]. security present.
--- NOTE | 2025-01-30 16:40 | PC.NURSE ---
Zyprexa Patient requesting zyprexa for anxiety. Patient's voice is shaky. Patient's hands are shaky as well. This nurse inquired about possible causes. Patient responded with, just anxious . Administered the medication. Offered therapeutic options for calming, such as wwarm tea and a cool cloth. patient declined. Patient now in dayroom with sitter, watching TV
[2025-01-30] MEDS: ziprasidone 20 mg/mL SDV IM (17:08)
--- NOTE | 2025-01-30 17:08 | PC.NURSE ---
Geodon Im 20mg Patient anxious and agitated despite PO PRN medications. This nurse administered geodon 20mg IM into patient's right deltoid muscle. Patient tolerated well. Security Armando present. Patient reports that she is unsure why she feels anxious. Dr. Lopez notified.
[2025-01-30] MEDS: water for injection-sterile 10 ML (17:11)
[2025-01-30] MEDS: LORazepam 2 mg Tablet PO (17:23)
--- NOTE | 2025-01-30 17:24 | PC.NURSE ---
Ativan 2mg Patient at window, reports that she is on the brink of a panic attack. This nurse talked with patient, educating her on giving medications time to work. Patient acknowledged this, but indicated that she was needing a medication quickly. This sign writer letterer or painter talked with Dr. Lopez, who said to give patient 2mg ativan PO. Medication administered. Patient pacing hallway with Armando from security. Patient appears anxious and agitated.
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
[2025-01-30 20:07] VITALS: RESP 16
--- NOTE | 2025-01-30 20:07 | PC.NURSE ---
pt sleeping would not wake up will try and get vitals when pt wakes up
[2025-01-30] MEDS: haloperidol 1 mg Tablet 2 MG PO (20:45)
[2025-01-30] MEDS: trazodone 50 mg Tablet PO (20:45)
[2025-01-30] MEDS: hyDROXYzine 25 mg Capsule 50 MG PO (20:45)
[2025-01-31 06:00] VITALS: BP 112/67; PULSE 103; RESP 16; O2SAT 97
[2025-01-31] MEDS: nicotine 2 mg Gum BUCCAL ×2 (08:02→15:42)
[2025-01-31] MEDS: paliperidone ER 3 mg Tablet PO (08:57)
[2025-01-31] MEDS: haloperidol 1 mg Tablet 2 MG PO ×2 (08:57→21:44)
[2025-01-31] MEDS: hyDROXYzine 25 mg Capsule 50 MG PO (08:59)
--- NOTE | 2025-01-31 09:06 | PC.NURSE ---
Patient requested Vistaril. René Valdivia RN pulled the medication and as I was opening them to administer them, I dropped 1 of the 25mg tablets in the floor. I called and spoke with Eduin in pharmacy and informed him of this issue. He asked that I waste 1 tablet [address] a one-time order for a new tablet to pull from [facility]. He asked that I non-administer the one-time order in the MAR with a comment that I administered that tablet with the 50 mg dose already documented. I wasted the 1 tablet as he instructed and non-administered the one-time order.
[2025-01-31] MEDS: haloperidol inj 5 mg/mL INJ 1 mL IM ×2 (11:41→16:31)
[2025-01-31] MEDS: diphenhydrAMINE 50 mg Capsule PO (11:41)
[2025-01-31 14:00] VITALS: BP 97/57; PULSE 143; RESP 18; TEMP 37.5; O2SAT 94
[2025-01-31] MEDS: OLANZapine 5 mg ODT PO (16:10)
[2025-01-31] MEDS: docusate sodium 100 mg Capsule PO (16:16)
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
[2025-01-31] MEDS: LORazepam 2 mg Tablet PO (18:09)
[2025-01-31] MEDS: benztropine 1 mg Tablet PO (18:09)
[2025-01-31 19:55] VITALS: BP 98/59; PULSE 99; RESP 16; TEMP 36.7; O2SAT 96
--- NOTE | 2025-01-31 22:00 | PC.NURSE ---
While pulling bedtime medications there was a problem with the [employer]. It would only allow medications to be pulled one at a time; each time a medication was pulled the Pixus would KICK ME OUT requiring me to log back in for each individual medication. In addition, the pixus was not acknowledging that the medications were pulled! This made it APPEAR that the medications were NOT PULLED even though they were indeed pulled and given. The medications in question (ALL PO) for this patient are as follows: AT 18:09 ATIVAN 2MG AND AT 21:44 HALDOL 2MG. This may ADVERSELY AFFECT the NARCOTIC COUNT as it would not allow me to put in the count. There were three displays on the Pixus: #1 CRITICAL OVERRIDE . #2 PATIENT DATA MAY NOT BE CURRENT : PATIENT INTERFACE PROBLEM FOR 9M . #3 PATIENT ORDERS MAY NOT BE CURRENT : ORDER INTERFACE PROBLEM FOR 20M . Taryn REYES the fun house operator was notified and advised that I check with / notify IT in case there was an update that we were unaware of. I checked with IT and they said they were not updating at this time. They suggested that I check with pharmacy in the morning. That is what I will do.
[2025-02-01 06:00] VITALS: BP 100/66; PULSE 104; RESP 16; TEMP 36.9; O2SAT 97
[2025-02-01] MEDS: benztropine 1 mg Tablet PO ×2 (08:08→17:54)
[2025-02-01] MEDS: ziprasidone hcl 40 mg Capsule PO (08:08)
[2025-02-01] MEDS: haloperidol 1 mg Tablet 2 MG PO ×2 (08:08→22:01)
--- NOTE | 2025-02-01 09:41 | PC.NURSE ---
Pt states that she slept ok. She rates her anxiety a 2/10 and reports no depression. She denies SI/HI. No hallucinations reported. She states that she has not had a bm in 4 days. Security is outside pt room monitoring. She was up to breakfast.
[2025-02-01] MEDS: nicotine 2 mg Gum BUCCAL (10:38)
[2025-02-01] MEDS: haloperidol inj 5 mg/mL INJ 1 mL IM (12:46)
[2025-02-01 14:00] VITALS: BP 82/52; PULSE 119; RESP 17; TEMP 37.4; O2SAT 98
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
[2025-02-01 20:44] VITALS: BP 84/56; PULSE 90; RESP 16; TEMP 37.1; O2SAT 96
[2025-02-01] MEDS: LORazepam 2 mg Tablet PO (22:02)
[2025-02-01] MEDS: diphenhydrAMINE 50 mg Capsule PO (22:02)
[2025-02-02] MEDS: OLANZapine 5 mg ODT PO ×2 (00:12→21:16)
[2025-02-02] MEDS: hyDROXYzine 25 mg Capsule 50 MG PO ×2 (00:12→08:20)
[2025-02-02] MEDS: nicotine 2 mg Gum BUCCAL ×6 (00:12→23:05)
[2025-02-02] MEDS: trazodone 50 mg Tablet PO (00:12)
[2025-02-02 06:00] VITALS: BP 88/57; PULSE 93; RESP 16; TEMP 36.7; O2SAT 95
[2025-02-02] MEDS: haloperidol 1 mg Tablet 2 MG PO ×2 (08:20→21:16)
[2025-02-02] MEDS: benztropine 1 mg Tablet PO ×2 (08:20→17:13)
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
[2025-02-02] MEDS: haloperidol inj 5 mg/mL INJ 1 mL IM (12:26)
[2025-02-02 14:00] VITALS: BP 128/94; PULSE 102; RESP 18; TEMP 36.6; O2SAT 96
[2025-02-02] MEDS: magnesium hydroxide 30 mL UDC PO (17:13)
[2025-02-02] MEDS: docusate sodium 100 mg Capsule PO (17:13)
[2025-02-02 20:46] VITALS: BP 102/68; PULSE 120; RESP 17; TEMP 36.9; O2SAT 97
[2025-02-02] MEDS: diphenhydrAMINE 50 mg Capsule PO (21:16)
[2025-02-03] MEDS: magnesium hydroxide 30 mL UDC PO (02:55)
[2025-02-03 06:00] VITALS: BP 91/62; PULSE 93; RESP 16; TEMP 36.8; O2SAT 96; BMI 22.9
--- NOTE | 2025-02-03 07:26 | PC.NURSE ---
Dr moses for Rosalina Amhadi to help pt with constipation. Docusate and MOM not working at this time.
--- NOTE | 2025-02-03 08:17 | PC.NURSE ---
Pt states that she didn't sleep too good last night. She is still struggling to have a bm and states that her belly is really bothering her. We have obtained a new order for a different stool softener. She denies any anxiety or depression this am. No hallucinations reported and denies SI/HI. She rates her pain a 6/10. Will give meds to help with bm and pain .
[2025-02-03] MEDS: benztropine 1 mg Tablet PO ×2 (08:20→18:16)
[2025-02-03] MEDS: sennosides-docusate Tablet 2 TAB PO (08:20)
[2025-02-03] MEDS: haloperidol 1 mg Tablet 2 MG PO ×2 (08:20→20:10)
[2025-02-03] MEDS: nicotine 2 mg Gum BUCCAL ×4 (09:22→20:09)
--- NOTE | 2025-02-03 09:37 | PC.NURSE ---
order for miralax daily and Colace daily. Pt cont to struggle with constipation.
[2025-02-03] MEDS: haloperidol inj 5 mg/mL INJ 1 mL IM (13:35)
[2025-02-03 14:00] VITALS: BP 97/57; PULSE 89; RESP 18; TEMP 36.6; O2SAT 97
[2025-02-03] MEDS: bisacodyl 10 mg Supp PR (14:19)
[2025-02-03] MEDS: Fleet Enema 133 mL Enema PR (15:40)
--- NOTE | 2025-02-03 16:01 | PC.NURSE ---
Gave pt a fleet enema, only approx half the solution went in. Approx 10 min later security reported that pt was up to the restroom. This nurse went to check on pt. She had a moderated amount of large hard stool. She stated that she still felt like she needed to go. I told her to just stay close to the toilet she may have more. She was in aggriance.
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
[2025-02-03] MEDS: haloperidol 5 mg Tablet PO (18:38)
[2025-02-03 19:56] VITALS: BP 92/69; PULSE 83; RESP 18; TEMP 36.7; O2SAT 97
[2025-02-03] MEDS: OLANZapine 5 mg ODT PO (20:10)
[2025-02-03] MEDS: trazodone 50 mg Tablet PO (20:10)
[2025-02-04] MEDS: acetaminophen 325 mg Tablet 650 MG PO (01:51)
[2025-02-04] MEDS: trazodone 50 mg Tablet PO ×2 (01:52→20:06)
[2025-02-04 06:00] VITALS: BP 88/59; PULSE 107; RESP 17; TEMP 36.8; O2SAT 97
[2025-02-04] MEDS: polyethylene glycol 3350 Pkt 17 gm PO (07:36)
[2025-02-04] MEDS: benztropine 1 mg Tablet PO ×2 (07:36→17:37)
[2025-02-04] MEDS: haloperidol 1 mg Tablet 2 MG PO ×2 (07:36→20:05)
[2025-02-04] MEDS: nicotine 2 mg Gum BUCCAL ×4 (07:37→20:05)
[2025-02-04] MEDS: diphenhydrAMINE 50 mg Capsule PO (12:10)
[2025-02-04] MEDS: LORazepam 2 mg Tablet PO (12:33)
[2025-02-04] MEDS: sennosides-docusate Tablet 2 TAB PO (13:10)
[2025-02-04] MEDS: ibuprofen 600 mg Tablet PO (13:10)
[2025-02-04 14:00] VITALS: BP 115/71; PULSE 103; RESP 17; TEMP 36.7; O2SAT 97
--- NOTE | 2025-02-04 14:12 | PC.NURSE ---
Patient reports feeling as thought her hands and abdomen are swelling . Patient's hands appear normal. Patient has appropriate capillary refill (less than 3 seconds) on each fingernail. Patient's abdomen is firm on palpation, but no distention noticed. Patient's BS are hypoactive in each quadrant. Patient given efrain and ibuprofen. Patient has been drinking a large amount of water and tea. This nurse recommended that patient cut back on her consumption. Dr. Lopez notified.
--- NOTE | 2025-02-04 14:15 | PC.NURSE ---
Hall Per Dr. Lopez, patient's noon dose of haldol IM held.
[2025-02-04] MEDS: ziprasidone hcl 40 mg Capsule PO (14:57)
--- NOTE | 2025-02-04 14:58 | PC.NURSE ---
Patient came to the window, frantically asking for this nurse. Patient told this nurse that she feels like her hands are swollen, but that they feel less swollen after receiving ibuprofen. This nurse administered geodon for apparent psychosis.
--- NOTE | 2025-02-04 17:59 | W.PM.NPUPNS ---
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 Patient continued to report constipation. She had also reported feeling swollen. She had denied any hallucinations at this time. She had continued to report that she was feeling better otherwise. She appeared more interactive but remained on one-to-one. She reported her energy is being fair and reported that her sleep was better. She did not require any as needed medications for agitation. Patient had stated that she was hopeful about returning home and going to work soon. She was unable to report any recent changes but reported having chronic problems with constipation. The patient reported that she would continue to welcome visits from family members particularly her sisters. She had reported that yesterday's enema was not helpful in alleviating constipation. She reported improved concentration as she had been seen reading a book today. Mental Status Exam MSE Comments: This is a well-nourished well-developed white female in hospital scrubs with with fair hygiene and grooming and improved eye contact. She was less distant and easier to engage on interview. No abnormal involuntary motor movements except for mild psychomotor retardation. She was cooperative with exam today in no acute distress. She was less guarded on interview. Speech was more productive in rate, normal rhythm and prosody. Mood described as okay Her affect was wider in range but still overall constricted. Her thought process was linear, and logical. Her thought content showed no evidence of homicidal or suicidal ideation today. There was less evidence of paranoia. There were no other delusions reported or noted. She did not appear internally preoccupied and denied auditory hallucinations at this time. Attention and concentration is fair. She was alert and oriented to person, place and time. Recent and remote memory were improving. Impulse control appeared to be improving. Insight is impaired. Judgment is fair. Vitals/I&O/Wt Last Vital Signs Temp 98.0 F 02/04/25 14:00 Pulse 103 H 02/04/25 14:00 Resp 17 02/04/25 14:00 BP 115/71 02/04/25 14:00 Pulse Ox 97 02/04/25 14:00 O2 Del Method Room Air 02/04/25 06:00 O2 Flow Rate 97 01/22/25 06:00 Weight last 48 hrs Weight 62.505 kg Data NPU 01/04/25 15:12 01/04/25 15:12 A&P Assessment and plan (1) Schizophreniform disorder: (2) Psychosis: Qualifiers: Psychosis type: unspecified psychosis type Qualified Code(s): F29 - Unspecified psychosis not due to a substance or known physiological condition Plan 24-year-old female admitted involuntarily with increased erratic behavior and continued evidence of psychotic symptoms. She appears at this time unwilling to consider psychotropic medications. 1. Patient appearing better, will hold on IM Haldol 5mg tommorow. Continue haldol to 2mg am, 5mg at night. D/C Invega and abilify. Continue cogentin 1mg bid to target possible akathisia. Continue low dose of zyprexa 5mg routinely at night. 2. Recommend sober living treatment at the highest level of care to which the patient is willing to commit. 3. Continue every 15 minute checks for safety.??? Changed to one-to-one after reviewing videotape of her being aggressive towards another patient. 4. Will attempt to gather collateral information. 5. Patient placed on 90 day hold. PDMP PDMP Reviewed: Not Reviewed Involuntary Hold Information Hold Status: Legal Status: 21 Day Hold Date/Time Hold Expires: 05/02/25 Attestations NPU Medical Necessity Statement*: Inpatient hospitalization is medically necessary and the clinically appropriate intervention ?at this time.? We will monitor/initiate medications and make changes as indicated.? The patient?s likely length of stay 6-10 days. Coding Level of Care Code Acute Code for [facility] Fwd Diagnoses Schizophreniform disorder F20.81 Psychosis F29 Psychosis type: unspecified psychosis type
[2025-02-04] MEDS: magnesium citrate Btl 296 mL PO (18:13)
[2025-02-04 19:49] VITALS: BP 111/67; PULSE 113; RESP 17; TEMP 37; O2SAT 96
[2025-02-04] MEDS: OLANZapine 5 mg ODT PO (20:06)
[2025-02-04] MEDS: docusate sodium 100 mg Capsule PO (20:06)
[2025-02-04] MEDS: hyDROXYzine 25 mg Capsule 50 MG PO (21:03)
[2025-02-05 06:00] VITALS: BP 104/66; PULSE 101; RESP 18; TEMP 36.8; O2SAT 97
[2025-02-05] MEDS: diphenhydrAMINE 50 mg Capsule PO ×2 (08:09→15:58)
[2025-02-05] MEDS: benztropine 1 mg Tablet PO ×2 (08:09→17:20)
[2025-02-05] MEDS: haloperidol 5 mg Tablet PO (08:09)
[2025-02-05] MEDS: nicotine 2 mg Gum BUCCAL ×3 (08:12→13:36)
--- NOTE | 2025-02-05 11:09 | XRR_ITS ---
PROCEDURE INFORMATION: Exam: XR Abdomen Exam date and time: 02/05/2025 11:26 AM Age: 24 years old Clinical indication: Constipation and abdominal discomfort for 5 days TECHNIQUE: Imaging protocol: Radiologic exam of the abdomen. Views: Frontal supine view of the abdomen. 1 View. COMPARISON: No relevant prior studies available. FINDINGS: Gastrointestinal tract: Large amount of fecal content in the colon. Nonobstructive bowel gas pattern. Intraperitoneal space: No free intraperitoneal air. Organs: No organomegaly. Bones/joints: Unremarkable for age. XR/XR KUB portable [id number] IMPRESSION: 1. Nonobstructed bowel gas pattern. 2. Large amount of fecal content in the colon.
--- NOTE | 2025-02-05 11:17 | PC.NURSE ---
V/o from Dr. Lopez to order a KUB to verify if constipation has improved since pt was c/o liquid stools today.
--- NOTE | 2025-02-05 11:51 | PC.NURSE ---
Dr. Lopez willing to allow some distance between the patient and security 1:1. The plan is to have patient continue to have security present and nearby as we attempt to transition patient off of a 1:1. Adry, Finishing [employer] Supervisor, Jr Rosario, Dr. Lopez, and Mónica, community development coordinator all aware.
[2025-02-05] MEDS: acetaminophen 325 mg Tablet 650 MG PO (13:38)
[2025-02-05 14:00] VITALS: BP 110/69; PULSE 106; RESP 16; TEMP 36.7; O2SAT 98
[2025-02-05] MEDS: polyethylene glycol 3350 Pkt 17 gm PO (16:37)
[2025-02-05] MEDS: docusate sodium 100 mg Capsule PO (16:39)
--- NOTE | 2025-02-05 16:40 | PC.NURSE ---
Pt received KUB and it showed large amounts of stool in colon. This am her 0900 miralax and docusate were held, because pt had reported that her stools were liquid this morning. Dr ordered that we give the held medications today and times be back on track in the am.
--- NOTE | 2025-02-05 17:52 | P.NPUPN_ITS ---
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 KUB was completed today and showed significant constipation. Patient had reported despite significant walking on the unit having some diarrhea followed by constipation. The patient reported no suicidal thoughts. She had reported that she had been hopeful about returning home. She had reported that she had not been feeling angry. She had reported that she had been feeling paranoid before but stated that she was feeling better and continued to appear motivated towards discharge soon. She had been taken off of one-to-one today and appeared to be tolerating it without any incident as she had been more social with her peers on the milieu. She reported difficulty falling asleep. Mental Status Exam 2 MSE Comments: This is a well-nourished well-developed white female in hospital scrubs with with fair hygiene and grooming and improved eye contact. She was pleasant and cooperative on interview. No abnormal involuntary motor movements except for mild psychomotor retardation. She was cooperative with exam today in no acute distress. She was less guarded on interview. Speech was more productive in rate, normal rhythm and prosody. Mood described as good Her affect was brighter today. Her thought process was linear, and logical. Her thought content showed no evidence of homicidal or suicidal ideation today. There was less evidence of paranoia. There were no other delusions reported or noted. She did not appear internally preoccupied and denied auditory hallucinations at this time. Attention and concentration is fair. She was alert and oriented to person, place and time. Recent and remote memory were improving. Impulse control appeared to be improving. Insight is impaired. Judgment is fair. Vitals/I&O/Wt Last Vital Signs Temp 98.0 F 02/05/25 14:00 Pulse 106 H 02/05/25 14:00 Resp 16 02/05/25 14:00 BP 110/69 02/05/25 14:00 Pulse Ox 98 02/05/25 14:00 O2 Del Method Room Air 02/05/25 06:00 O2 Flow Rate 97 01/22/25 06:00 Data NPU 01/04/25 15:12 01/04/25 15:12 A&P Assessment and plan (1) Schizophreniform disorder: (2) Psychosis: Qualifiers: Psychosis type: unspecified psychosis type Qualified Code(s): F29 - Unspecified psychosis not due to a substance or known physiological condition Plan 24-year-old female admitted involuntarily with increased erratic behavior and continued evidence of psychotic symptoms. She appears at this time unwilling to consider psychotropic medications. 1. Patient appearing better, will hold on IM Haldol 5mg tommorow. Continue haldol to 2mg am, 5mg at night. D/C Invega and abilify. Continue cogentin 1mg bid to target possible akathisia. Continue low dose of zyprexa 5mg routinely at night. 2. Recommend sober living treatment at the highest level of care to which the patient is willing to commit. 3. Continue every 15 minute checks for safety.??? Continue to work with patient on discharge planning. 4. Will attempt to gather collateral information. 5. Patient placed on 90 day hold. PDMP PDMP Reviewed: Not Reviewed Involuntary Hold Information 2 Hold Status: Legal Status: 90 Day Hold Date/Time Hold Expires: 05/03/25 Attestations NPU 2 Medical Necessity Statement*: Inpatient hospitalization is medically necessary and the clinically appropriate intervention ?at this time.? We will monitor/initiate medications and make changes as indicated.? The patient?s likely length of stay 6-10 days. Coding Level of Care Code Acute Code for g Fwd Diagnoses Schizophreniform disorder F20.81 Psychosis F29 Psychosis type: unspecified psychosis type
[2025-02-05 20:39] VITALS: BP 112/74; PULSE 92; RESP 16; TEMP 36.7; O2SAT 98
[2025-02-05] MEDS: OLANZapine 5 mg ODT PO (21:28)
[2025-02-05] MEDS: trazodone 50 mg Tablet PO ×2 (21:29→21:30)
[2025-02-05] MEDS: haloperidol 1 mg Tablet 2 MG PO (21:30)
[2025-02-06] MEDS: hyDROXYzine 25 mg Capsule 50 MG PO ×2 (02:41→20:01)
[2025-02-06] MEDS: acetaminophen 325 mg Tablet 650 MG PO ×2 (02:43→08:59)
[2025-02-06 06:00] VITALS: BP 96/55; PULSE 104; RESP 18; TEMP 36.9; O2SAT 99
[2025-02-06] MEDS: diphenhydrAMINE 50 mg Capsule PO (07:19)
[2025-02-06] MEDS: haloperidol 5 mg Tablet PO (08:28)
[2025-02-06] MEDS: benztropine 1 mg Tablet PO ×2 (08:28→17:29)
[2025-02-06 12:36] VITALS: BP 108/74; PULSE 109; RESP 16; TEMP 36.6; O2SAT 96
--- NOTE | 2025-02-06 17:34 | P.NPUPN_ITS ---
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 Patient continued to complain of constipation. She had reported that she struggled with recalling the details regarding the details of when she had become more paranoid prior to coming here in the hospital. She had stated that her sleep was better. She had reported motivation to returning home. She reported no struggles with staying on task. She had a good visit with her friend today and reported that she would like to continue on this medication. She had continued to report at times feeling that her hands were swollen. She denied any hallucinations at this time. Mental Status Exam 2 MSE Comments: This is a well-nourished well-developed white female in hospital scrubs with with fair hygiene and grooming and improved eye contact. She was pleasant and cooperative on interview. No abnormal involuntary motor movements except for mild psychomotor retardation. She was cooperative with exam today in no acute distress. She was less guarded on interview. Speech was more productive in rate, normal rhythm and prosody. Mood described as better Her affect was brighter today. Her thought process was linear, and logical. Her thought content showed no evidence of homicidal or suicidal ideation today. There was less evidence of paranoia. There were no other delusions reported or noted. She did not appear internally preoccupied and denied auditory hallucinations at this time. Attention and concentration is fair. She was alert and oriented to person, place and time. Recent and remote memory were improving. Impulse control appeared to be improving. Insight is limited. Judgment is fair. Vitals/I&O/Wt Last Vital Signs Temp 97.9 F 02/06/25 12:36 Pulse 109 H 02/06/25 12:36 Resp 16 02/06/25 12:36 BP 108/74 02/06/25 12:36 Pulse Ox 96 02/06/25 12:36 O2 Del Method Room Air 02/06/25 12:36 O2 Flow Rate 97 01/22/25 06:00 Data NPU 01/04/25 15:12 01/04/25 15:12 A&P Assessment and plan (1) Schizophreniform disorder: (2) Psychosis: Qualifiers: Psychosis type: unspecified psychosis type Qualified Code(s): F29 - Unspecified psychosis not due to a substance or known physiological condition Plan 24-year-old female admitted involuntarily with increased erratic behavior and continued evidence of psychotic symptoms. She appears at this time unwilling to consider psychotropic medications. 1. Patient appearing better, will begin working on discharge planning Continue haldol to 2mg am, 5mg at night. Continue cogentin 1mg bid to target possible EPS. Continue low dose of zyprexa 5mg routinely at night. 2. Recommend sober living treatment at the highest level of care to which the patient is willing to commit. 3. Continue every 15 minute checks for safety.??? Continue to work with patient on discharge planning. 4. Will attempt to gather collateral information. 5. Patient placed on 90 day hold. PDMP PDMP Reviewed: Not Reviewed Involuntary Hold Information 2 Hold Status: Legal Status: 90 Day Hold Date/Time Hold Expires: 05/03/25 Attestations NPU 2 Medical Necessity Statement*: Inpatient hospitalization is medically necessary and the clinically appropriate intervention ?at this time.? We will monitor/initiate medications and make changes as indicated.? The patient?s likely length of stay 4-6 days. Coding Level of Care Code Acute Code for g Fwd Diagnoses Schizophreniform disorder F20.81 Psychosis F29 Psychosis type: unspecified psychosis type
[2025-02-06] MEDS: docusate sodium 100 mg Capsule PO (20:01)
[2025-02-06] MEDS: haloperidol 1 mg Tablet 2 MG PO (20:01)
[2025-02-06] MEDS: trazodone 50 mg Tablet PO (20:01)
[2025-02-06] MEDS: OLANZapine 5 mg ODT PO (20:01)
[2025-02-06 20:20] VITALS: BP 99/62; PULSE 75; RESP 17; TEMP 36.9; O2SAT 96
--- NOTE | 2025-02-07 05:10 | PC.NURSE ---
Pt. reported a numb feeling all over her body. Signee had just given pt. Vistaril for anxiety and informed pt. to let signee know if she was still feeling the numb sensation in about 45 min. Pt. did not come back and report anything.
[2025-02-07 06:00] VITALS: BP 104/62; PULSE 94; RESP 16; TEMP 36.8; O2SAT 96
[2025-02-07] MEDS: benztropine 1 mg Tablet PO ×2 (08:10→17:07)
[2025-02-07] MEDS: docusate sodium 100 mg Capsule PO (08:11)
[2025-02-07] MEDS: haloperidol 5 mg Tablet PO (08:11)
[2025-02-07] MEDS: polyethylene glycol 3350 Pkt 17 gm PO (08:13)
--- NOTE | 2025-02-07 13:56 | PC.NURSE ---
Constipation Pt states that she never had a bm after the enema that was done on Tuesday. ordered a soap suds enema to be done today. We have informed pt and she requested that we start after visiting hours in case she did have a visitor.
[2025-02-07 14:00] VITALS: BP 108/64; PULSE 103; RESP 16; TEMP 37.1; O2SAT 99
--- NOTE | 2025-02-07 14:16 | P.NPUPN_ITS ---
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 Patient continued to complain of constipation. Per staff, the patient appeared to have become angry after a family member had contacted her via phone yesterday. The patient when discussing this stated that she did not wish to focus on the past but would rather focus on the future. The patient had stated that she felt ready that she would be able to handle much of the stress that had caused her breakdown here. She had minimized any auditory or visual hallucinations. She had stated that she was feeling calmer. She had continued to reiterate her desire to return to her home. She had continued to state that she would like to be independent. Mental Status Exam 2 MSE Comments: This is a well-nourished well-developed white female in hospital scrubs with with fair hygiene and grooming and improved eye contact. She was pleasant and mostly cooperative on interview. No abnormal involuntary motor movements except for mild psychomotor retardation. She was cooperative with exam today in no acute distress. She was evasive on interview as she continued to deflect any questions regarding her family and her current ability to manage impending stressors at home. Speech was more productive in rate, normal rhythm and prosody. Mood described as better Her affect was superficially euthymic. Her thought process was linear, and logical. Her thought content showed no evidence of homicidal or suicidal ideation today. There was less evidence of paranoia. There were no other delusions reported or noted. She did not appear internally preoccupied and denied auditory hallucinations at this time. Attention and concentration is fair. She was alert and oriented to person, place and time. Recent and remote memory were improving. Impulse control appeared to be improving. Insight is limited. Judgment is fair. Vitals/I&O/Wt Last Vital Signs Temp 98.8 F 02/07/25 14:00 Pulse 103 H 02/07/25 14:00 Resp 16 02/07/25 14:00 BP 108/64 02/07/25 14:00 Pulse Ox 99 02/07/25 14:00 O2 Del Method Room Air 02/07/25 14:00 O2 Flow Rate 97 01/22/25 06:00 Data NPU 01/04/25 15:12 01/04/25 15:12 A&P Assessment and plan (1) Schizophreniform disorder: (2) Psychosis: Qualifiers: Psychosis type: unspecified psychosis type Qualified Code(s): F29 - Unspecified psychosis not due to a substance or known physiological condition Plan 24-year-old female admitted involuntarily with increased erratic behavior and continued evidence of psychotic symptoms. She appears at this time unwilling to consider psychotropic medications. 1. Patient appearing better, will begin working on discharge planning Increase haldol to 2mg am, 6mg at night. Continue cogentin 1mg bid to target possible EPS. Continue low dose of zyprexa 5mg routinely at night. 2. Recommend sober living treatment at the highest level of care to which the patient is willing to commit. 3. Continue every 15 minute checks for safety.??? Continue to work with patient on discharge planning. 4. Will attempt to gather collateral information. 5. Patient placed on 90 day hold. PDMP PDMP Reviewed: Not Reviewed Involuntary Hold Information 2 Hold Status: Legal Status: 90 Day Hold Date/Time Hold Expires: 05/03/25 Attestations NPU 2 Medical Necessity Statement*: Inpatient hospitalization is medically necessary and the clinically appropriate intervention ?at this time.? We will monitor/initiate medications and make changes as indicated.? The patient?s likely length of stay 4-6 days. Coding Level of Care Code Acute Code for [facility] Fwd Diagnoses Schizophreniform disorder F20.81 Psychosis F29 Psychosis type: unspecified psychosis type
[2025-02-07 20:06] VITALS: BP 114/70; PULSE 87; RESP 17; TEMP 37.1; O2SAT 98
[2025-02-07] MEDS: haloperidol 1 mg Tablet 2 MG PO (20:33)
[2025-02-07] MEDS: hyDROXYzine 25 mg Capsule 50 MG PO (20:34)
[2025-02-07] MEDS: trazodone 50 mg Tablet PO (20:34)
[2025-02-07] MEDS: OLANZapine 5 mg ODT PO (20:34)
[2025-02-08 06:00] VITALS: BP 111/75; PULSE 87; RESP 16; TEMP 36.8; O2SAT 97
[2025-02-08] MEDS: docusate sodium 100 mg Capsule PO (07:12)
[2025-02-08] MEDS: hyDROXYzine 25 mg Capsule 50 MG PO (07:12)
[2025-02-08] MEDS: polyethylene glycol 3350 Pkt 17 gm PO (07:12)
[2025-02-08] MEDS: benztropine 1 mg Tablet PO ×2 (07:13→17:27)
[2025-02-08] MEDS: haloperidol 1 mg Tablet 6 MG PO (07:13)
--- NOTE | 2025-02-08 07:25 | PC.NURSE ---
Pt. came up to the nurses station x two the first time informing signee she was not having a BM, but it was just water coming out. Signee suggested holding the Miralax, but pt. thought she was still backed up and wanted to take it and requested a enema later tonight. Signee said we would see if she still thought she needed and enema tonight. The second x pt. came to signee she stated she could not smell and asked if there was anything she could take for that. Signee informed pt. that signee was unsure if that was a side effect of one of her medications, but also informed pt. that staff was not allowed to wear any perfume and there may not be a lot to smell on the unit, that if she was concerned about it to mention it to the
[2025-02-08 14:00] VITALS: BP 100/62; PULSE 111; RESP 17; O2SAT 97
--- NOTE | 2025-02-08 15:09 | P.NPUPN_ITS ---
Subjective NPU 2 Subjective: Patient presented today asking about discharge and reporting significant improvement. She did appear to be showing improvement recently per staff reports and direct observation. We discussed the need to get her off of one-to-one as the first step in looking towards discharge as a possibility. We discussed possibly making a change to her one-to-one status by the morning. Otherwise she was thankful about the assistance that she has gotten here and continued to endorse that she feels the aggressiveness that was seen by her during the stay was related to a bad response to the first medication. She denied any side effects or medication. Mental Status Exam 2 MSE Comments: This is a well-nourished well-developed white female in hospital scrubs with with fair hygiene and grooming and improved eye contact. She was pleasant and mostly cooperative on interview. No abnormal involuntary motor movements except for mild psychomotor retardation. She was cooperative with exam today in no acute distress. She was evasive on interview as she continued to deflect any questions regarding her family and her current ability to manage impending stressors at home. Speech was more productive in rate, normal rhythm and prosody. Mood described as better Her affect was superficially euthymic. Her thought process was linear, and logical. Her thought content showed no evidence of homicidal or suicidal ideation today. There was less evidence of paranoia. There were no other delusions reported or noted. She did not appear internally preoccupied and denied auditory hallucinations at this time. Attention and concentration is fair. She was alert and oriented to person, place and time. Recent and remote memory were improving. Impulse control appeared to be improving. Insight is limited. Judgment is fair. Vitals/I&O/Wt Last Vital Signs Temp 98.2 F 02/08/25 06:00 Pulse 111 H 02/08/25 14:00 Resp 17 02/08/25 14:00 BP 100/62 02/08/25 14:00 Pulse Ox 97 02/08/25 14:00 O2 Del Method Room Air 02/08/25 06:00 O2 Flow Rate 97 01/22/25 06:00 Data NPU 01/04/25 15:12 01/04/25 15:12 A&P Assessment and plan (1) Schizophreniform disorder: (2) Psychosis: Qualifiers: Psychosis type: unspecified psychosis type Qualified Code(s): F29 - Unspecified psychosis not due to a substance or known physiological condition Plan 24-year-old female admitted involuntarily with increased erratic behavior and continued evidence of psychotic symptoms. She appears at this time unwilling to consider psychotropic medications. 1. Patient appearing better, will begin working on discharge planning Increase haldol to 2mg am, 6mg at night. Continue cogentin 1mg bid to target possible EPS. Continue low dose of zyprexa 5mg routinely at night. 2. Recommend sober living treatment at the highest level of care to which the patient is willing to commit. 3. Continue every 15 minute checks for safety.??? Continue to work with patient on discharge planning. 4. Will attempt to gather collateral information. 5. Patient placed on 90 day hold. PDMP PDMP Reviewed: Not Reviewed Involuntary Hold Information 2 Hold Status: Legal Status: 90 Day Hold Date/Time Hold Expires: 05/03/25 Attestations NPU 2 Medical Necessity Statement*: Inpatient hospitalization is medically necessary and the clinically appropriate intervention ?at this time.? We will monitor/initiate medications and make changes as indicated.? The patient?s likely length of stay 4-6 days. Coding Level of Care Code Acute Code for [facility] Fwd Diagnoses Schizophreniform disorder F20.81 Psychosis F29 Psychosis type: unspecified psychosis type
[2025-02-08 20:13] VITALS: BP 112/77; PULSE 97; RESP 17; TEMP 37; O2SAT 96
[2025-02-08] MEDS: trazodone 50 mg Tablet PO (21:42)
[2025-02-08] MEDS: haloperidol 1 mg Tablet 2 MG PO (21:42)
[2025-02-08] MEDS: diphenhydrAMINE 50 mg Capsule PO (21:43)
[2025-02-08] MEDS: nicotine 2 mg Gum BUCCAL (21:43)
[2025-02-08] MEDS: OLANZapine 5 mg ODT PO (21:43)
[2025-02-09 06:00] VITALS: BP 96/55; PULSE 90; RESP 17; TEMP 37.1; O2SAT 98
[2025-02-09] MEDS: haloperidol 1 mg Tablet 6 MG PO (08:12)
[2025-02-09] MEDS: benztropine 1 mg Tablet PO ×2 (08:12→17:18)
[2025-02-09] MEDS: polyethylene glycol 3350 Pkt 17 gm PO (08:12)
--- NOTE | 2025-02-09 11:14 | PC.NURSE ---
Per Dr. Harvey, patient taken off 1:1 at 1113. Staff are to increase rounding. Security to make 30 minute rounds on the unit. Dr. Harvey talked with patient about her expectations. Understanding verbalized.
[2025-02-09] MEDS: docusate sodium 100 mg Capsule PO (12:09)
[2025-02-09] MEDS: hyDROXYzine 25 mg Capsule 50 MG PO ×2 (13:50→21:26)
--- NOTE | 2025-02-09 13:52 | PC.NURSE ---
Vistaril 50mg PO administered for moderate anxiety. Patient denies thoughts of wanting to harm others.
[2025-02-09 14:00] VITALS: BP 106/72; PULSE 128; RESP 20; TEMP 37.1; O2SAT 98
--- NOTE | 2025-02-09 14:12 | P.NPUPN_ITS ---
Subjective NPU 2 Subjective: Patient presented today reporting that she is feeling better. We discussed the risks, benefits and alternatives of taking her off of any special observation status and placing her back on every 15 minute checks for safety. We discussed the importance of her managing this well and that this will really determine whether she is ready for discharge next week. She denied any side effects of the medication and endorsed appreciation for what we have been doing for her here and optimism that she will continue as she has and be ready for discharge next week. She denied any side effects of the medication. Mental Status Exam 2 MSE Comments: This is a well-nourished well-developed white female in hospital scrubs with with fair hygiene and grooming and improved eye contact. She was pleasant and mostly cooperative on interview. No abnormal involuntary motor movements except for mild psychomotor retardation. She was cooperative with exam today in no acute distress. She was evasive on interview as she continued to deflect any questions regarding her family and her current ability to manage impending stressors at home. Speech was more productive in rate, normal rhythm and prosody. Mood described as better Her affect was superficially euthymic. Her thought process was linear, and logical. Her thought content showed no evidence of homicidal or suicidal ideation today. There was less evidence of paranoia. There were no other delusions reported or noted. She did not appear internally preoccupied and denied auditory hallucinations at this time. Attention and concentration is fair. She was alert and oriented to person, place and time. Recent and remote memory were improving. Impulse control appeared to be improving. Insight is limited. Judgment is fair. Vitals/I&O/Wt Last Vital Signs Temp 98.7 F 02/09/25 06:00 Pulse 90 02/09/25 06:00 Resp 17 02/09/25 06:00 BP 96/55 02/09/25 06:00 Pulse Ox 98 02/09/25 06:00 O2 Del Method Room Air 02/09/25 06:00 O2 Flow Rate 97 01/22/25 06:00 Data NPU 01/04/25 15:12 01/04/25 15:12 A&P Assessment and plan (1) Schizophreniform disorder: (2) Psychosis: Qualifiers: Psychosis type: unspecified psychosis type Qualified Code(s): F29 - Unspecified psychosis not due to a substance or known physiological condition Plan 24-year-old female admitted involuntarily with increased erratic behavior and continued evidence of psychotic symptoms. She appears at this time unwilling to consider psychotropic medications. 1. Patient appearing better, will begin working on discharge planning Increase haldol to 2mg am, 6mg at night. Continue cogentin 1mg bid to target possible EPS. Continue low dose of zyprexa 5mg routinely at night. 2. Recommend sober living treatment at the highest level of care to which the patient is willing to commit. 3. ?Patient placed on straight one-to-one observation. Continue to work with patient on discharge planning. 4. Will attempt to gather collateral information. 5. Patient placed on 90 day hold. PDMP PDMP Reviewed: Not Reviewed Involuntary Hold Information 2 Hold Status: Legal Status: 90 Day Hold Date/Time Hold Expires: 05/03/25 Attestations NPU 2 Medical Necessity Statement*: Inpatient hospitalization is medically necessary and the clinically appropriate intervention ?at this time.? We will monitor/initiate medications and make changes as indicated.? The patient?s likely length of stay 3-5 days. Coding Level of Care Code Acute Code for [facility] Fwd Diagnoses Schizophreniform disorder F20.81 Psychosis F29 Psychosis type: unspecified psychosis type
[2025-02-09] MEDS: nicotine 2 mg Gum BUCCAL (19:23)
--- NOTE | 2025-02-09 19:31 | XRR_ITS ---
PROCEDURE INFORMATION: Exam: XR Abdomen Exam date and time: 02/09/2025 8:04 PM Age: 24 years old Clinical indication: Constipation TECHNIQUE: Imaging protocol: Radiologic exam of the abdomen. Views: Frontal supine view of the abdomen. 1 View. COMPARISON: CR XR KUB portable [id number] 02/05/2025 11:26 AM FINDINGS: Lungs: Lung bases are unremarkable. Gastrointestinal tract: Extensive amount of feces in the entire colon indicating constipation. Bones/joints: No acute osseous abnormality. XR/XR KUB portable [id number] IMPRESSION: Constipation.
[2025-02-09 20:10] VITALS: BP 108/64; PULSE 100; RESP 18; TEMP 36.3; O2SAT 98
[2025-02-09] MEDS: OLANZapine 5 mg ODT PO (21:26)
[2025-02-09] MEDS: trazodone 50 mg Tablet PO (21:26)
[2025-02-09] MEDS: haloperidol 1 mg Tablet 2 MG PO (21:26)
[2025-02-10 06:00] VITALS: BP 102/64; PULSE 69; RESP 18; O2SAT 97
[2025-02-10] MEDS: haloperidol 1 mg Tablet 6 MG PO (08:22)
[2025-02-10] MEDS: docusate sodium 100 mg Capsule PO (08:22)
[2025-02-10] MEDS: benztropine 1 mg Tablet PO ×2 (08:22→17:40)
[2025-02-10] MEDS: polyethylene glycol 3350 Pkt 17 gm PO (08:23)
[2025-02-10] MEDS: ibuprofen 600 mg Tablet PO (11:34)
--- NOTE | 2025-02-10 13:11 | P.NPUPN_ITS ---
Subjective NPU 2 Subjective: Patient presented today reporting that she is feeling optimistic about the prospects of possibly discharging this week. Her roommate presented to visitation and later identified clear improvement but her not being back to baseline. We discussed continuing to monitor her over the the next few days and planning on discharge at the middle of the week if she continues to show improvement. She is excited about that prospect and denied any side effects to medication. Mental Status Exam 2 MSE Comments: This is a well-nourished well-developed white female in hospital scrubs with with fair hygiene and grooming and improved eye contact. She was pleasant and mostly cooperative on interview. No abnormal involuntary motor movements except for mild psychomotor retardation. She was cooperative with exam today in no acute distress. She was evasive on interview as she continued to deflect any questions regarding her family and her current ability to manage impending stressors at home. Speech was more productive in rate, normal rhythm and prosody. Mood described as better Her affect was superficially euthymic. Her thought process was linear, and logical. Her thought content showed no evidence of homicidal or suicidal ideation today. There was less evidence of paranoia. There were no other delusions reported or noted. She did not appear internally preoccupied and denied auditory hallucinations at this time. Attention and concentration is fair. She was alert and oriented to person, place and time. Recent and remote memory were improving. Impulse control appeared to be improving. Insight is limited. Judgment is fair. Vitals/I&O/Wt Last Vital Signs Temp 97.4 F L 02/09/25 20:10 Pulse 69 02/10/25 06:00 Resp 18 02/10/25 06:00 BP 102/64 02/10/25 06:00 Pulse Ox 97 02/10/25 06:00 O2 Del Method Room Air 02/09/25 14:00 O2 Flow Rate 97 01/22/25 06:00 Weight last 48 hrs Weight 62.142 kg Data NPU 01/04/25 15:12 01/04/25 15:12 A&P Assessment and plan (1) Schizophreniform disorder: (2) Psychosis: Qualifiers: Psychosis type: unspecified psychosis type Qualified Code(s): F29 - Unspecified psychosis not due to a substance or known physiological condition Plan 24-year-old female admitted involuntarily with increased erratic behavior and continued evidence of psychotic symptoms. She appears at this time unwilling to consider psychotropic medications. 1. Patient appearing better, will begin working on discharge planning Increase haldol to 2mg am, 6mg at night. Continue cogentin 1mg bid to target possible EPS. Continue low dose of zyprexa 5mg routinely at night. 2. Recommend sober living treatment at the highest level of care to which the patient is willing to commit. 3. ?Patient placed on straight one-to-one observation. Continue to work with patient on discharge planning. 4. Will attempt to gather collateral information. 5. Patient placed on 90 day hold. PDMP PDMP Reviewed: Not Reviewed Involuntary Hold Information 2 Hold Status: Legal Status: 90 Day Hold Date/Time Hold Expires: 05/03/25 Attestations NPU 2 Medical Necessity Statement*: Inpatient hospitalization is medically necessary and the clinically appropriate intervention ?at this time.? We will monitor/initiate medications and make changes as indicated.? The patient?s likely length of stay 3-4 days. Coding Level of Care Code Acute Code for [facility] Fwd Diagnoses Schizophreniform disorder F20.81 Psychosis F29 Psychosis type: unspecified psychosis type
[2025-02-10 14:00] VITALS: BP 91/53; PULSE 84; RESP 16; TEMP 37.3; O2SAT 97
[2025-02-10] MEDS: nicotine 2 mg Gum BUCCAL (17:09)
[2025-02-10] MEDS: magnesium hydroxide 30 mL UDC PO (17:42)
--- NOTE | 2025-02-10 18:11 | PC.NURSE ---
Brown Cow Patient's KUB indicates constipation. Dr. Harvey notified. Dr. Harvey gave verbal for rachel ford: milk of magnesium, prune juice, and molasses. Patient drank this concoction with no issue.
[2025-02-10 19:34] VITALS: BP 100/49; PULSE 82; RESP 15; TEMP 36.6; O2SAT 96
[2025-02-10] MEDS: trazodone 50 mg Tablet PO (21:10)
[2025-02-10] MEDS: haloperidol 1 mg Tablet 2 MG PO (21:10)
[2025-02-10] MEDS: OLANZapine 5 mg ODT PO (21:10)
[2025-02-10] MEDS: diphenhydrAMINE 50 mg Capsule PO (21:10)
[2025-02-11 06:00] VITALS: BP 95/55; PULSE 70; RESP 18; TEMP 36.8; O2SAT 97
[2025-02-11] MEDS: nicotine 2 mg Gum BUCCAL ×3 (07:48→16:52)
[2025-02-11] MEDS: haloperidol 1 mg Tablet 6 MG PO (08:22)
[2025-02-11] MEDS: polyethylene glycol 3350 Pkt 17 gm PO ×2 (08:22→20:41)
[2025-02-11] MEDS: benztropine 1 mg Tablet PO ×2 (08:22→20:42)
[2025-02-11] MEDS: docusate sodium 100 mg Capsule PO (08:22)
[2025-02-11] MEDS: hyDROXYzine 25 mg Capsule 50 MG PO (09:04)
--- NOTE | 2025-02-11 09:04 | PC.NURSE ---
prn Vistaril 50 mg given po per pt c/o stated anxiety
--- NOTE | 2025-02-11 13:22 | P.NPUPN_ITS ---
Subjective NPU 2 Subjective: Patient presented today reporting that life is going well. She is very optimistic about the prospect of possible discharge this week. She reports that her and her roommate are prepared to make sure she is able to follow through on her follow-up and she is prepared to take medications via injection possibly. We discussed the risks, benefits and alternatives of possibly making her Haldol a long-acting injectable and she understood and agreed to proceed as is documented in this note. We also discussed making sure that she had a consult for her constipation prior to discharge. She denied any side effects of medication. Mental Status Exam 2 MSE Comments: This is a well-nourished well-developed white female in hospital scrubs with with fair hygiene and grooming and improved eye contact. She was pleasant and mostly cooperative on interview. No abnormal involuntary motor movements except for mild psychomotor retardation. She was cooperative with exam today in no acute distress. She was evasive on interview as she continued to deflect any questions regarding her family and her current ability to manage impending stressors at home. Speech was more productive in rate, normal rhythm and prosody. Mood described as better Her affect was superficially euthymic. Her thought process was linear, and logical. Her thought content showed no evidence of homicidal or suicidal ideation today. There was less evidence of paranoia. There were no other delusions reported or noted. She did not appear internally preoccupied and denied auditory hallucinations at this time. Attention and concentration is fair. She was alert and oriented to person, place and time. Recent and remote memory were improving. Impulse control appeared to be improving. Insight is limited. Judgment is fair. Vitals/I&O/Wt Last Vital Signs Temp 98.2 F 02/11/25 06:00 Pulse 70 02/11/25 06:00 Resp 18 02/11/25 06:00 BP 95/55 02/11/25 06:00 Pulse Ox 97 02/11/25 06:00 O2 Del Method Room Air 02/11/25 06:00 O2 Flow Rate 97 01/22/25 06:00 Weight last 48 hrs Weight 62.142 kg Data NPU 01/04/25 15:12 01/04/25 15:12 A&P Assessment and plan (1) Schizophreniform disorder: (2) Psychosis: Qualifiers: Psychosis type: unspecified psychosis type Qualified Code(s): F29 - Unspecified psychosis not due to a substance or known physiological condition Plan 24-year-old female admitted involuntarily with increased erratic behavior and continued evidence of psychotic symptoms. She appears at this time unwilling to consider psychotropic medications. 1. Patient appearing better, will begin working on discharge planning Increase haldol to 2mg am, 6mg at night. Continue cogentin 1mg bid to target possible EPS. Continue low dose of zyprexa 5mg routinely at night. 2. Recommend sober living treatment at the highest level of care to which the patient is willing to commit. 3. ?Patient placed on straight one-to-one observation. Continue to work with patient on discharge planning. 4. Will attempt to gather collateral information. 5. Patient placed on 90 day hold. 6. Appreciate hospitalist consult as we continue to try to assist patient in her constipation without success. We will await recommendations and follow as indicated. 7. Consider discharge in the next 72 hours. PDMP PDMP Reviewed: Not Reviewed Involuntary Hold Information 2 Hold Status: Legal Status: 90 Day Hold Date/Time Hold Expires: 05/03/25 Attestations NPU 2 Medical Necessity Statement*: Inpatient hospitalization is medically necessary and the clinically appropriate intervention ?at this time.? We will monitor/initiate medications and make changes as indicated.? The patient?s likely length of stay 2-3 days. Coding Level of Care Code Acute Code for Chg Fwd Diagnoses Schizophreniform disorder F20.81 Psychosis F29 Psychosis type: unspecified psychosis type
[2025-02-11 14:00] VITALS: BP 112/68; PULSE 74; RESP 16; TEMP 37.1; O2SAT 98
--- NOTE | 2025-02-11 18:08 | P.CONIM_ITS ---
Providers/Reason For Consult 2 Consulting Physician/Specialty*: psychiatry Reason for Consult*: constipation Attending Physician: Rickey Lopez MD History of Present Illness History of Present Illness Susan Diggs is a 24 year old female admitted to the neuropsychiatric unit, hospitalist team has been consulted due to constipation, patient does not report a history of constipation she has only been really constipated since she has been here in the hospital, she has not had a bowel movement in 5 days, denies any abdominal pain but does report abdominal bloating, no bloody or black stools reported, she is passing liquid stools, pieces of stool, denies a history of food intolerance, no history of celiac disease, no history of colon cancer, history of colonoscopy, no history of Crohn's disease or ulcerative colitis, no nausea, vomiting, Medications/Allergies Home Medications ?Medication ?Instructions ?Recorded ?Confirmed ?Last Taken ?Type No Known Home Medications 01/04/2512/22 Unknown History Allergies Allergy/AdvReac Type Severity Reaction Status Date / Time No Known Allergies Allergy Verified 01/04/25 13:38 Current Medications Generic Name Dose Route Start Last Admin Trade Name Freq PRN Reason Stop Dose Admin Acetaminophen 650 mg 01/04/25 17:22 02/06/25 08:59 Acetaminophen 325 Mg Tablet PO 650 mg Q4H PRN Administration MILD PAIN Diphenhydramine HCl 50 mg 01/04/25 17:22 01/28/25 13:21 Diphenhydramine 50 Mg/Ml Sdv 1ml IM 50 mg Q4H PRN Administration Severe Aggression Diphenhydramine HCl 50 mg 01/25/25 16:58 02/10/25 21:10 Diphenhydramine 50 Mg Capsule PO 50 mg Q4H PRN Administration AGITATION Haloperidol 5 mg 01/04/25 17:22 02/03/25 18:38 Haloperidol 5 Mg Tablet PO 5 mg Q4H PRN Administration AGITATION Haloperidol 2 mg 01/29/25 21:00 02/10/25 21:10 Haloperidol 1 Mg Tablet PO 2 mg 2100 MARILYNN Administration Haloperidol 6 mg 02/08/25 09:00 02/11/25 08:22 Haloperidol 1 Mg Tablet PO 6 mg 0900 MARILYNN Administration Haloperidol Lactate 5 mg 01/04/25 17:22 01/31/25 16:31 Haloperidol Inj 5 Mg/Ml Inj 1 Ml IM 5 mg Q4H PRN Administration Severe Aggression Hydroxyzine Pamoate 50 mg 01/04/25 17:22 02/11/25 09:04 Hydroxyzine 25 Mg Capsule PO 50 mg Q6H PRN Administration ANXIETY Ibuprofen 600 mg 01/04/25 17:23 02/10/25 11:34 Ibuprofen 600 Mg Tablet PO 600 mg Q6H PRN Administration MODERATE PAIN Loperamide HCl 2 mg 01/04/25 17:22 01/16/25 13:39 Loperamide 2 Mg Capsule PO 2 mg Q6H PRN Administration DIARRHEA Lorazepam 2 mg 01/04/25 17:22 01/28/25 13:21 Lorazepam 2 Mg/Ml Inj 1 Ml IM 2 mg Q4H PRN Administration Severe Aggression Lorazepam 2 mg 01/25/25 16:59 02/04/25 12:33 Lorazepam 2 Mg Tablet PO 2 mg Q4H PRN Administration ANXIETY Magnesium Hydroxide 30 ml 01/17/25 10:01 02/10/25 17:42 Magnesium Hydroxide 30 Ml Udc PO 30 ml BID PRN Administration CONSTIPATION Nicotine Polacrilex 2 mg 01/04/25 17:22 02/11/25 16:52 Nicotine 2 Mg Gum BUCCAL 2 mg Q2H PRN Administration NICOTINE WITHDRAWAL Nicotine Polacrilex 4 mg 01/04/25 17:23 01/20/25 18:13 Nicotine 4 Mg Lozenge MUCOUS MEM 4 mg Q2H PRN Administration NICOTINE CRAVINGS Olanzapine 5 mg 01/04/25 17:22 02/02/25 00:12 Olanzapine 5 Mg Odt PO 5 mg Q4H PRN Administration Agitation/Psychosis Olanzapine 5 mg 02/02/25 21:00 02/10/25 21:10 Olanzapine 5 Mg Odt PO 5 mg BEDTIME MARILYNN Administration Ondansetron HCl 4 mg 01/04/25 17:22 01/21/25 09:11 Ondansetron 4 Mg Tablet PO 4 mg Q6H PRN Administration NAUSEA AND VOMITING Trazodone HCl 50 mg 01/07/25 20:18 02/10/25 21:10 Trazodone 50 Mg Tablet PO 50 mg BEDTIME PRN Administration SLEEP Ziprasidone 40 mg 01/11/25 18:13 02/04/25 14:57 Ziprasidone Hcl 40 Mg Capsule PO 40 mg 0700,1700 PRN Administration HALLUCINATIONS Ziprasidone 20 mg 01/21/25 10:45 01/30/25 17:08 Ziprasidone 20 Mg/Ml Sdv IM 20 mg BID PRN Administration MODERATE ANXIETY Vitals/I&O/Wt Last Vital Signs Temp 98.7 F 02/11/25 14:00 Pulse 74 02/11/25 14:00 Resp 16 02/11/25 14:00 BP 112/68 02/11/25 14:00 Pulse Ox 98 02/11/25 14:00 O2 Del Method Room Air 02/11/25 06:00 O2 Flow Rate 97 01/22/25 06:00 Weight last 48 hrs Weight 62.142 kg Physical Exam 2 Const: COMMON NORMALS: no acute distress and patient oriented x3 HENMT: COMMON NORMALS: normocephalic HEAD & SCALP: normocephalic Resp: COMMON NORMALS: normal respiratory effort, No retractions, No use of accessory muscles and clear to auscultation bilaterally AUSCULTATION: clear to auscultation bilaterally Cardio: COMMON NORMALS: regular rate, regular rhythm, S1 normal heart sound present and S2 normal heart sound present RATE: regular rate RHYTHM: r egular rhythm HEART SOUNDS: S1 normal heart sound present and S2 normal heart sound present GI: COMMON NORMALS: Normal to inspection, nondistended, normoactive bowel sounds present, Soft to palpation and non-tender PALPATION: Yes Soft to palpation Extremity: COMMON NORMALS: no pedal edema Neuro: COMMON NORMALS: patient oriented x3 Psych: COMMON NORMALS: mental status grossly normal Data 01/04/25 15:12 01/04/25 15:12 A&P Assessment and plan (1) Constipation: Plan Constipation -Abdomen soft, benign, no guarding, no rebound, no rigidity, no nausea, no vomiting - Likely a combination of patient's psychotropic medications including Haldol, Zyprexa, Geodon Plan - Increase MiraLAX to 17 g twice daily - Switch to senna 1 tablet twice daily - Will add on lactulose 20 g every 12 hours as needed - Can have a Fleet enema - Drink plenty of electrolyte balanced fluids - Will continue to monitor clinically PDMP PDMP Reviewed: Not Reviewed Consult Attestations 2 Medical Necessity Statement: Patient requires hospitalization due to severe constipation Diagnoses Constipation K59.00
--- NOTE | 2025-02-11 18:12 | XRR_ITS ---
PROCEDURE INFORMATION: Exam: XR Abdomen Exam date and time: 02/11/2025 7:21 PM Age: 24 years old Clinical indication: Constipation TECHNIQUE: Imaging protocol: Radiologic exam of the abdomen. Views: Frontal supine view of the abdomen. 1 View. COMPARISON: CR (ABDOMEN, ) 02/09/2025 8:04 PM FINDINGS: Gastrointestinal tract: There is progressing extensive diffuse colonic stool/severe constipation and concern for impaction with a large amount of stool in the rectum. This is increasing compared to the prior exams. No ileus or obstruction. Bones/joints: Unremarkable. Soft tissues: No calculi or foreign bodies. XR/XR KUB portable [id number] IMPRESSION: There is progressing extensive diffuse colonic stool/severe constipation and concern for impaction with a large amount of stool in the rectum.
[2025-02-11 20:25] VITALS: BP 114/76; PULSE 102; RESP 18; O2SAT 99
[2025-02-11] MEDS: Fleet Enema 133 mL Enema PR (20:41)
[2025-02-11] MEDS: sennosides-docusate Tablet 1 TAB PO (20:41)
[2025-02-11] MEDS: haloperidol 1 mg Tablet 2 MG PO (20:41)
[2025-02-11] MEDS: OLANZapine 5 mg ODT PO (20:42)
[2025-02-11] MEDS: trazodone 50 mg Tablet PO (20:42)
[2025-02-12 06:00] VITALS: BP 100/52; PULSE 76; RESP 16; O2SAT 97
[2025-02-12] MEDS: polyethylene glycol 3350 Pkt 17 gm PO ×2 (08:33→17:31)
[2025-02-12] MEDS: haloperidol 1 mg Tablet 6 MG PO (08:34)
[2025-02-12] MEDS: sennosides-docusate Tablet 1 TAB PO ×2 (08:34→17:31)
[2025-02-12] MEDS: benztropine 1 mg Tablet PO ×2 (08:34→21:33)
[2025-02-12] MEDS: nicotine 2 mg Gum BUCCAL ×3 (09:39→17:39)
[2025-02-12] MEDS: magnesium citrate Btl 296 mL 150 ML PO (09:40)
[2025-02-12 14:00] VITALS: BP 102/64; PULSE 110; RESP 18; TEMP 36.9; O2SAT 97
--- NOTE | 2025-02-12 14:41 | PC.NURSE ---
Patient reports a bowel movement today, small and loose.
--- NOTE | 2025-02-12 15:58 | P.NPUPN_ITS ---
Subjective NPU 2 Subjective: Patient presented today reporting that she is feeling good. She was inquiring about discharge and we discussed the likelihood of discharge in the next 48 hours. We talked about the possibility of the Haldol Decanoate shot which she was somewhat unsure of but we discussed the concern about her not following through with the medication and falling back into previous patterns which would be very problematic. She endorsed being hopeful for discharge tomorrow but excepting that it might be . She denied any side effects of medication. Mental Status Exam 2 MSE Comments: This is a well-nourished well-developed white female in hospital scrubs with with fair hygiene and grooming and improved eye contact. She was pleasant and mostly cooperative on interview. No abnormal involuntary motor movements except for mild psychomotor retardation. She was cooperative with exam today in no acute distress. She was evasive on interview as she continued to deflect any questions regarding her family and her current ability to manage impending stressors at home. Speech was more productive in rate, normal rhythm and prosody. Mood described as better Her affect was superficially euthymic. Her thought process was linear, and logical. Her thought content showed no evidence of homicidal or suicidal ideation today. There was less evidence of paranoia. There were no other delusions reported or noted. She did not appear internally preoccupied and denied auditory hallucinations at this time. Attention and concentration is fair. She was alert and oriented to person, place and time. Recent and remote memory were improving. Impulse control appeared to be improving. Insight is limited. Judgment is fair. Vitals/I&O/Wt Last Vital Signs Temp 98.7 F 02/11/25 14:00 Pulse 76 02/12/25 06:00 Resp 16 02/12/25 06:00 BP 100/52 02/12/25 06:00 Pulse Ox 97 02/12/25 06:00 O2 Del Method Room Air 02/11/25 06:00 O2 Flow Rate 97 01/22/25 06:00 Data NPU 01/04/25 15:12 01/04/25 15:12 A&P Assessment and plan (1) Schizophreniform disorder: (2) Psychosis: Qualifiers: Psychosis type: unspecified psychosis type Qualified Code(s): F29 - Unspecified psychosis not due to a substance or known physiological condition Plan 24-year-old female admitted involuntarily with increased erratic behavior and continued evidence of psychotic symptoms. She appears at this time unwilling to consider psychotropic medications. 1. Patient appearing better, will begin working on discharge planning Increase haldol to 2mg am, 6mg at night. Continue cogentin 1mg bid to target possible EPS. Continue low dose of zyprexa 5mg routinely at night. Consider switching over to Haldol decanoate. 2. Recommend sober living treatment at the highest level of care to which the patient is willing to commit. 3. ?Patient placed on straight one-to-one observation. Continue to work with patient on discharge planning. 4. Will attempt to gather collateral information. 5. Patient placed on 90 day hold. 6. Appreciate hospitalist consult as we continue to try to assist patient in her constipation without success. We will await recommendations and follow as indicated. 7. Consider discharge in the next 72 hours. PDMP PDMP Reviewed: Not Reviewed Involuntary Hold Information 2 Hold Status: Legal Status: 90 Day Hold Date/Time Hold Expires: 05/03/25 Attestations NPU 2 Medical Necessity Statement*: Inpatient hospitalization is medically necessary and the clinically appropriate intervention ?at this time.? We will monitor/initiate medications and make changes as indicated.? The patient?s likely length of stay 1-3 days. Coding Level of Care Code Acute Code for Chg Fwd Diagnoses Schizophreniform disorder F20.81 Psychosis F29 Psychosis type: unspecified psychosis type
[2025-02-12] MEDS: Fleet Enema 133 mL Enema PR (17:31)
--- NOTE | 2025-02-12 18:28 | PC.NURSE ---
Fleets Enema administered to patient with no issue. Most of fluid administered. Patient tolerated well. Patient was able to pass a small BM.
[2025-02-12 20:01] VITALS: BP 99/60; PULSE 78; RESP 18; O2SAT 97
[2025-02-12] MEDS: OLANZapine 5 mg ODT PO (21:33)
[2025-02-12] MEDS: trazodone 50 mg Tablet PO (21:33)
[2025-02-12] MEDS: haloperidol 1 mg Tablet 2 MG PO (21:33)
[2025-02-13 06:00] VITALS: BP 81/52; PULSE 75; RESP 16; O2SAT 96
[2025-02-13] MEDS: sennosides-docusate Tablet 1 TAB PO ×2 (10:01→17:01)
[2025-02-13] MEDS: polyethylene glycol 3350 Pkt 17 gm PO ×2 (10:01→17:01)
[2025-02-13] MEDS: benztropine 1 mg Tablet PO ×2 (10:01→20:23)
[2025-02-13] MEDS: haloperidol 1 mg Tablet 6 MG PO (10:01)
--- NOTE | 2025-02-13 10:14 | XR_ITS ---
WS: [id number] Exam: XR KUB portable [id number] Date/Time of Exam: 02/13/2025 10:58 AM Reason For Exam: impaction Comparison 02/11/2025. There has been significant evacuation of stool from the colon however there is still moderate stool retention in the descending, transverse and ascending colon. The rectosigmoid colon is unremarkable in appearance. No bowel obstruction or free air. No organ enlargement. Normal bony structures. XR/XR KUB portable [id number] IMPRESSION: 1. There is still moderate stool retention in the colon however there is been s ignificant improvement since 02/11/2025.
[2025-02-13] MEDS: lactulose oral liq 20 gm/30 mL UDC PO ×2 (12:28→20:24)
[2025-02-13] MEDS: nicotine 2 mg Gum BUCCAL ×2 (12:32→17:01)
[2025-02-13 14:00] VITALS: BP 104/68; PULSE 74; RESP 18; TEMP 36.6; O2SAT 99
--- NOTE | 2025-02-13 15:29 | P.PN_ITS ---
Subjective 2 Subjective: Patient was seen this morning she reports having several bowel movements overnight, moderately sized, discussed continue bowel regimen, will repeat KUB to see for rectal impaction has improved if not she might need digital disimpaction, no abdominal pain, no nausea/vommiting, kub shows moderate stool retention in the colon however there is been significant improvement Vitals/I&O/Wt Last Vital Signs Temp 98.5 F 02/12/25 14:00 Pulse 75 02/13/25 06:00 Resp 16 02/13/25 06:00 BP 81/52 02/13/25 06:00 Pulse Ox 96 02/13/25 06:00 O2 Del Method Room Air 02/11/25 06:00 O2 Flow Rate 97 01/22/25 06:00 Physical Exam 2 Const: COMMON NORMALS: no acute distress and patient oriented x3 Resp: COMMON NORMALS: normal respiratory effort, No retractions, No use of accessory muscles and clear to auscultation bilaterally AUSCULTATION: clear to auscultation bilaterally Cardio: COMMON NORMALS: regular rate, regular rhythm, S1 normal heart sound present and S2 normal heart sound present RATE: regular rate RHYTHM: r egular rhythm HEART SOUNDS: S1 normal heart sound present and S2 normal heart sound present GI: COMMON NORMALS: Normal to inspection, nondistended, normoactive bowel sounds present and non-tender Extremity: COMMON NORMALS: no pedal edema Neuro: COMMON NORMALS: patient oriented x3 Psych: COMMON NORMALS: mental status grossly normal Data 01/04/25 15:12 01/04/25 15:12 A&P Assessment and plan (1) Constipation: Plan Constipation -Abdomen soft, benign, no guarding, no rebound, no rigidity, no nausea, no vomiting - Likely a combination of patient's psychotropic medications including Haldol, Zyprexa, Geodon Plan - Increase MiraLAX to 17 g twice daily - Switch to senna 1 tablet twice daily - lactulose 20 g every 12 hours as needed - Fleet enema prn - Drink plenty of electrolyte balanced fluids - Will continue to monitor clinically PDMP PDMP Reviewed: Not Reviewed Attestations 2 Medical Necessity Statement*: patient requires hospitalization for constipation Diagnoses Constipation K59.00
--- NOTE | 2025-02-13 19:38 | P.NPUPN_ITS ---
Subjective NPU 2 Subjective: Patient presents today reporting that things are going okay. She is very interested in discharge and we discussed trying to figure out how exactly to manage her medications. We discussed the fact that it would be preferential to the treatment team that she consider the Haldol decanoate injection that would be initially every 2 weeks and then monthly. She is somewhat resistant to an injection. She denied any side effects of the medication. Mental Status Exam 2 MSE Comments: This is a well-nourished well-developed white female in hospital scrubs with with fair hygiene and grooming and improved eye contact. She was pleasant and mostly cooperative on interview. No abnormal involuntary motor movements except for mild psychomotor retardation. She was cooperative with exam today in no acute distress. She was evasive on interview as she continued to deflect any questions regarding her family and her current ability to manage impending stressors at home. Speech was more productive in rate, normal rhythm and prosody. Mood described as better Her affect was superficially euthymic. Her thought process was linear, and logical. Her thought content showed no evidence of homicidal or suicidal ideation today. There was less evidence of paranoia. There were no other delusions reported or noted. She did not appear internally preoccupied and denied auditory hallucinations at this time. Attention and concentration is fair. She was alert and oriented to person, place and time. Recent and remote memory were improving. Impulse control appeared to be improving. Insight is limited. Judgment is fair. Vitals/I&O/Wt Last Vital Signs Temp 97.5 F L 02/13/25 19:48 Pulse 103 H 02/13/25 19:48 Resp 18 02/13/25 19:48 BP 98/52 02/13/25 19:48 Pulse Ox 96 02/13/25 19:48 O2 Del Method Room Air 02/13/25 19:48 O2 Flow Rate 97 01/22/25 06:00 Data NPU 01/04/25 15:12 01/04/25 15:12 A&P Assessment and plan (1) Schizophreniform disorder: (2) Psychosis: Qualifiers: Psychosis type: unspecified psychosis type Qualified Code(s): F29 - Unspecified psychosis not due to a substance or known physiological condition Plan 24-year-old female admitted involuntarily with increased erratic behavior and continued evidence of psychotic symptoms. She appears at this time unwilling to consider psychotropic medications. 1. Patient appearing better, will begin working on discharge planning Increase haldol to 2mg am, 6mg at night. Continue cogentin 1mg bid to target possible EPS. Continue low dose of zyprexa 5mg routinely at night. Consider switching over to Haldol decanoate. Could do 50 mg IM at discharge and 50 mg in 2 weeks. 2. Recommend sober living treatment at the highest level of care to which the patient is willing to commit. 3. ?Patient placed on straight one-to-one observation. Continue to work with patient on discharge planning. 4. Will attempt to gather collateral information. 5. Patient placed on 90 day hold. 6. Appreciate hospitalist consult as we continue to try to assist patient in her constipation without success. We will await recommendations and follow as indicated. 7. Consider discharge in the next 72 hours. PDMP PDMP Reviewed: Not Reviewed Involuntary Hold Information 2 Hold Status: Legal Status: 90 Day Hold Date/Time Hold Expires: 05/03/25 Attestations NPU 2 Medical Necessity Statement*: Inpatient hospitalization is medically necessary and the clinically appropriate intervention ?at this time.? We will monitor/initiate medications and make changes as indicated.? The patient?s likely length of stay 1-2 days. Coding Level of Care Code Acute Code for Chg Fwd Diagnoses Schizophreniform disorder F20.81 Psychosis F29 Psychosis type: unspecified psychosis type
[2025-02-13 19:48] VITALS: BP 98/52; PULSE 103; RESP 18; TEMP 36.4; O2SAT 96
[2025-02-13] MEDS: hyDROXYzine 25 mg Capsule 50 MG PO (20:23)
[2025-02-13] MEDS: OLANZapine 5 mg ODT PO (20:23)
[2025-02-13] MEDS: trazodone 50 mg Tablet PO (20:23)
[2025-02-13] MEDS: haloperidol 1 mg Tablet 2 MG PO (20:23)
[2025-02-14 06:00] VITALS: BP 110/80; PULSE 71; RESP 16; O2SAT 96
[2025-02-14] MEDS: sennosides-docusate Tablet 1 TAB PO (08:05)
[2025-02-14] MEDS: haloperidol 1 mg Tablet 6 MG PO (08:06)
[2025-02-14] MEDS: benztropine 1 mg Tablet PO (08:06)
[2025-02-14] MEDS: polyethylene glycol 3350 Pkt 17 gm PO (08:09)
--- NOTE | 2025-02-14 10:28 | PC.NURSE ---
Pt states that she tossed and turned a lot last night. She denies anxiety and depression. No SI/HI. No reports of hallucinations. Denies any pain. Pt states that she had 2 good BM yesterday. I asked her to cont to report those to us so we could keep them documented and be sure that her constipation resolved.
[2025-02-14] MEDS: lactulose oral liq 20 gm/30 mL UDC PO (13:19)
--- NOTE | 2025-02-14 13:58 | PC.NURSE ---
NEW ORDERS RECEIVED FROM DR. BENAVIDES FOR HALDOL DECONATE 50 MG IM NOW. PT TO TAKE EVERY TWO WEEKS AFTER DISCHARGE, OR 100 MG MONTHLY WHICHEVER PT TOLERATES BETTER. INFORMED PT OF POSSIBLE DISCHARGE TODAY AND SPOKE TO BOYFRIEND PER PTS VERBAL CONSENT. PT AND BOYFRIEND CONFIRM PT WILL GO TO [place] FOR OUT PATIENT CARE AND RECEIVING HALDOL INJECTIONS. PT EDUCATED ON GOING TO [facility] FOR ASSESSMENT AND PT STATES SHE WILL GO. ALL QUESTIONS ANSWERED AND DR. BENAVIDES UPDATED ON PT CONSENTING TO MONTHLY HALDOL INJECTIONS.
[2025-02-14 14:00] VITALS: BP 123/89; PULSE 106; RESP 17; O2SAT 97
[2025-02-14] MEDS: haloperidol decanoate 100 mg/mL INJ 1 mL 50 MG IM (14:37)
--- NOTE | 2025-02-14 14:46 | PC.NURSE ---
Pt given Haldol Dec. 50mg in Lt Deltoid. Pt tolerated well.
[2025-02-14 17:01] VITALS: BP 123/89; PULSE 106; RESP 17; TEMP 37; O2SAT 97
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
--- NOTE | 2025-02-14 17:21 | PC.NURSE ---
It was brought to my attention by Elham Hobson RN that patient had one dose of Haldol left after administering the first dose of 50 mg today. Patient is due for another dose in 2 weeks, on 02/28/25. I called and spoke with Fariha Reynoso, Director of Clinics and discussed this with her as patient lives near the [facility]. She states that patient would be able to come to the [facility] and receive her Haldol injection with no issues, just asked that I contact Halley Jacobson, Supervisor [employer] of [facility] to ensure there was an appointment made. I spoke with Halley and informed her of the above information. She states patient is scheduled for Mini with [facility] on 02/27, but we can change that date to 02/28 and she can have the appointments back to back on 02/28 so she doesn't have to make two trips. We arranged for patient to see Mini at 0830 and then follow up with JAZMINE Guardado at 1000 on 02/28 for her injection. Halley states she will be in [place] on 02/15 and I will provide her with the remaining dose of Haldol at that time. I spoke with patient's significant other, Иван, and informed him of the above information. He verbalizes understanding and is appreciative. Updated the d/c plan with information prior to printing the d/c packet.
== END 2025-02-14 18:02 | disposition home or self-care (01) | DRG 885 ==
LOC: ER 16:16 → NP 16:17
PROVIDERS: Admitting Provider Psychiatry & Neurology Psychiatry; Emergency Provider Physician Assistant; Visit Provider Psychiatry & Neurology Psychiatry
DX: F20.81 Schizophreniform disorder (principal); F91.1 Conduct disorder, childhood-onset type; K59.00 Constipation, unspecified
CPT/HCPCS: 36415; 36416; 70450; 73130; 74018; 80053; 80306; 80307; 81025; 82962; 84443; 85025; 96372; 97150; 97165; 97167; 99285; J1200; J1630; J1631; J2060; J3486; J9999; Q0162; Q0163